=== PATIENT | female | born 1960 | race Caucasian/White ===

== ENCOUNTER 2018-10-25 19:55 | Emergency (ER) | payer MEDICAID ==
[~2018-10-25] VITALS: Ht 157.5 cm; Wt 100.0 kg
[~2018-10-25 19:55] MED LIST: AMLO10TA PO; ATOR40TA71 PO; CHOL10002 PO; GABA-532 PO; LACT1CAP26 PO; LOSA1TAB41 PO; NORT25CA5 PO; PANT40TA4 PO; SITA100T11 PO; SPIR50TA5 PO
[2018-10-25 22:28] VITALS: BP 191/98
[2018-10-25] MEDS ORDERED: azithromycin 250mg tablet PO ONE (22:40)
[2018-10-25] MEDS ORDERED: AZIT250T PO (22:43)
== END 2018-10-25 22:58 | disposition home or self-care (01) ==
LOC: ER 19:56
DX: J18.9 Pneumonia, unspecified organism (principal); E11.42 Type 2 diabetes mellitus with diabetic polyneuropathy; I11.0 Hypertensive heart disease with heart failure; I50.9 Heart failure, unspecified; I48.91 Unspecified atrial fibrillation; E78.00 Pure hypercholesterolemia, unspecified; K21.9 Gastro-esophageal reflux disease without esophagitis; J44.9 Chronic obstructive pulmonary disease, unspecified; Z90.49 Acquired absence of other specified parts of digestive tract; Z90.710 Acquired absence of both cervix and uterus; Z88.0 Allergy status to penicillin; Z88.5 Allergy status to narcotic agent; Z79.899 Other long term (current) drug therapy
CPT/HCPCS: 71046; 93005; 99284

== ENCOUNTER 2019-08-26 20:29 | Inpatient (IN) | payer MEDICAID ==
[~2019-08-26] VITALS: Ht 157.5 cm; Wt 95.4 kg
[2019-08-26 21:16] LABS: BASOPHILS # (AUTO) 0.1 X10'3 (0-0.2); BASOPHILS % (AUTO) 0.8 % (0-1); EOSINOPHILS # (AUTO) 0.3 X10'3 (0-0.9); EOSINOPHILS % (AUTO) 1.9 % (0-6); HEMATOCRIT 38.2 % (35.0-45.0); LYMPHOCYTES # (AUTO) 2.6 X10'3 (1.1-4.8); LYMPHOCYTES % (AUTO) 17.6 % (21-51); MEAN CORPUSCULAR HEMOGLOBIN 30.9 PG (27.0-31.0); MEAN CORPUSCULAR HGB CONC 34.1 g/dL (33.0-36.5); MEAN CORPUSCULAR VOLUME 90.7 FL (78-98); MEAN PLATELET VOLUME 9.2 FL (7.4-10.4); MONOCYTES # (AUTO) 1.1 X10'3 (0-0.9); MONOCYTES % (AUTO) 7.2 % (2-12); NEUTROPHILS # (AUTO) 10.6 X10'3 (1.8-7.7); NEUTROPHILS % (AUTO) 72.5 % (42-75); PLATELET COUNT 276 X10'3 (140-440); RED BLOOD COUNT 4.21 X10'6 (4.20-5.60); RED CELL DISTRIBUTION WIDTH 14.2 % (11.5-14.5); WHITE BLOOD COUNT 14.7 X10'3 (4.5-11.0)
[2019-08-26 21:27] LABS: ALANINE AMINOTRANSFERASE 13 U/L (12-78); ALBUMIN 2.6 G/DL (3.4-5.0); ALBUMIN/GLOBULIN RATIO 0.6 (1.1-1.5); ALKALINE PHOSPHATASE 148 IU/L (46-116); ANION GAP 9 (8-16); ASPARTATE AMINO TRANSFERASE 17 U/L (10-37); BILIRUBIN,TOTAL 0.2 MG/DL (0.1-1.0); BLOOD UREA NITROGEN 24 MG/DL (7-18); BUN/CREATININE RATIO 9.7 (6.6-38.0); CALCIUM 8.2 MG/DL (8.5-10.1); CHLORIDE 108 MMOL/L (99-107); CREATININE 2.47 MG/DL (0.40-0.90); GLUCOSE 170 MG/DL (70-104); SODIUM 142 MMOL/L (135-145); TOTAL CARBON DIOXIDE 25.4 MMOL/L (24-32); TOTAL PROTEIN 6.7 G/DL (6.4-8.2); eGFR 20 ML/MIN
--- NOTE | 2019-08-26 22:27 | NUR ---
bp on right 192/129 bp on the left 218/129 PA shaneka baez
[2019-08-26] MEDS ORDERED: metoprolol tartrate 1mg/ml inj IV ONE (22:30)
[2019-08-26] MEDS ORDERED: iohexol 350MG/ML 100ml bottle IV ONE (22:31)
--- NOTE | 2019-08-26 22:39 | NUR ---
pt to ct via wheel chair
[2019-08-26] MEDS ORDERED: hydrALAZINE 20mg/ml inj. IV ONE (23:50)
[2019-08-27] VITALS (19 sets, daily range): BP systolic 128–175; BP diastolic 65–102
[2019-08-27] MEDS ORDERED: nitroGLYCERIN-Tridil 50MG/D5W 250 ML IV PRN (00:12)
--- NOTE | 2019-08-27 01:00 | NUR ---
daughter in law jennifer can be reached at [phone]
--- NOTE | 2019-08-27 01:28 | NUR ---
nitor going at 10mcg / min pt reports pain 4/10 bp at 199/100 increased nitro drip to 15mcg/ min infusing to the right ac patent without incident at this time pt plan of care updated and pt is awaiting a bed for admission
[2019-08-27] MEDS ORDERED: amLODIPine 5mg tablet PO ONE (01:35)
[2019-08-27] MEDS ORDERED: hydrALAZINE 20mg/ml inj. IV ONE (01:35)
[2019-08-27] MEDS ORDERED: potassium CL 10mEq/100ml bag 100 ML IV PRN ×2 (01:45)
[2019-08-27] MEDS: K, MAG and/or Phos replacement - Verify level? MC SCH ×2 (01:45→08:00)
[2019-08-27] MEDS ORDERED: ondansetron/PF 4mg/2ml inj IV PRN (01:45)
[2019-08-27] MEDS ORDERED: magnesium hydroxide 30ml (MOM) UD suspension PO PRN (01:45)
[2019-08-27] MEDS ORDERED: potassium Cl 20 mEq SR tablet PO PRN ×2 (01:45)
[2019-08-27] MEDS ORDERED: acetaminophen 325mg tablet PO PRN (01:45)
[2019-08-27] MEDS ORDERED: dextrose 50%-water 50ml dispensing syringe IV PRN ×2 (01:55)
[2019-08-27] MEDS ORDERED: dextrose ORAL solution 15 GM/59 ML bottle PO PRN ×2 (01:55)
[2019-08-27] MEDS ORDERED: MESSAGE TO PHARMACY PO ONE (01:55)
[2019-08-27] MEDS ORDERED: glucagon, human recombinant 1mg kit SUBCUT PRN (01:55)
--- NOTE | 2019-08-27 02:05 | NUR ---
bp at 172/86 niro running at 15mcg/ min will continue to moniter and tirate as needed
--- NOTE | 2019-08-27 02:55 | NUR ---
received pt via silviorayla from ER, pt ambulated to bed without difficulties. Pt is in and out of Afib, mostly SR, Tridil drip in place to keep sbp near 180, see flow sheet for titrations. pt denies numbness and tingling speech clear thought process is clear.
[2019-08-27] MEDS: acetaminophen 325mg tablet PO PRN ×2 (03:24→18:57)
[2019-08-27 06:08] LABS: HEMOGLOBIN A1C 7.9 % (4.5-6.2)
--- NOTE | 2019-08-27 06:18 | NUR ---
report given to rec rn plan of care reviewed
--- NOTE | 2019-08-27 06:30 | NUR ---
Patient in room ICU 2039. I have received report from PATY ALLISON and had the opportunity to ask questions and assume patient care.
[2019-08-27] MEDS: pantoprazole 40mg Tablet.DR PO SCH (08:31)
[2019-08-27] MEDS: insulin Lispro (HumaLOG) vial - multi-dose SQ SCH (08:38)
[2019-08-27] MEDS ORDERED: carVEDilol 3.125mg tablet PO SCH (08:45)
[2019-08-27 08:51] LABS: ALANINE AMINOTRANSFERASE 13 U/L (12-78); ALBUMIN 2.5 G/DL (3.4-5.0); ALBUMIN/GLOBULIN RATIO 0.7 (1.1-1.5); ALKALINE PHOSPHATASE 145 IU/L (46-116); ANION GAP 13 (8-16); ASPARTATE AMINO TRANSFERASE 17 U/L (10-37); BILIRUBIN,TOTAL 0.2 MG/DL (0.1-1.0); BLOOD UREA NITROGEN 23 MG/DL (7-18); BUN/CREATININE RATIO 9.7 (6.6-38.0); CALCIUM 8.2 MG/DL (8.5-10.1); CHLORIDE 106 MMOL/L (99-107); CREATININE 2.38 MG/DL (0.40-0.90); GLUCOSE 210 MG/DL (70-104); POTASSIUM 3.8 MMOL/L (3.5-5.1); SODIUM 138 MMOL/L (135-145); TOTAL CARBON DIOXIDE 19.4 MMOL/L (24-32); TOTAL PROTEIN 6.3 G/DL (6.4-8.2); eGFR 21 ML/MIN
[2019-08-27] MEDS: losartan 50mg tablet PO SCH (09:17)
[2019-08-27] MEDS: amLODIPine 5mg tablet PO SCH (09:19)
[2019-08-27] MEDS: vitamin D (cholecalciferol) 1,000 unit tablet PO SCH (09:20)
[2019-08-27] MEDS: linagliptin 5mg tablet PO SCH (11:01)
--- NOTE | 2019-08-27 12:20 | NUR ---
DM Consult: A1C 7.9. Pt admit w/ hypertensive emergency and CKD. Pt seen by RD for written/verbal DM ed w/ RD contact information provided. Pt reports checks GLU at home but does have difficulty w/ med refills on occasion and cannot recall her DM meds. Per EMR pt takes daily Januvia. Pt reports does not know what carbs are or sources of carbs; RD provided thorough ed on types of and sources of carbohydrates. RD also reviewed protein sources, carb counting, portion sizing, and nutrition facts label guidelines and encouraged pt to attend CDE course. Pt reports no trouble chewing/swallowing or food preferences at this time. Addendum: 08/27/19 at [address] Amended: Links added.
[2019-08-27] MEDS ORDERED: simethicone 80mg chew tab PO PRN (14:05)
--- NOTE | 2019-08-27 14:08 | NUR ---
C/O CP, DIRECTLY OVER HEART. NO SX OF ANY DISTRESS, DESCRIBES SHARP, STARTTED FEW MINUTES AGO. ELIZABETH METCALF NOTIFIED, ORDER FOR SIMETHICONE PO.
[2019-08-27] MEDS: lactobacillus rhamnosus 10,000 MMU CELLS/CAPSULE PO SCH (17:34)
--- NOTE | 2019-08-27 18:20 | NUR ---
Patient in room ICU 2039. I have received report from Basil NEWMAN and had the opportunity to ask questions and assume patient care.
--- NOTE | 2019-08-27 18:36 | NUR ---
Problems reprioritized. Patient report given, questions answered & plan of care reviewed with jared guardado.
--- NOTE | 2019-08-27 19:16 | NUR ---
Problems reprioritized. Patient report given, questions answered & plan of care reviewed with Daniela NEWMAN. Patient to be transferred to U [id number].
--- NOTE | 2019-08-27 19:34 | NUR ---
pt arrived to PCU unit from ICU via wheelchair pt is A&O x4, pt denies any respiratory distress at this time, will continue to monitor pt
--- NOTE | 2019-08-27 19:50 | NUR ---
Patient transferred to room 3025B via wheelchair, all belongings with patient. Patient is alert and orientated x4, in sinus rhythm, vital signs stable, on room air with spo2 at 97%, lungs are clear in upper lobes, bilateral bases are course, skin intact, PIV is saline locked. All questions answered with INFORMATION SERVICES TECH.
[2019-08-27] MEDS: gabapentin 300mg capsule PO SCH (19:52)
[2019-08-27] MEDS: carvedilol 6.25mg tablet PO SCH (19:52)
[2019-08-27] MEDS: insulin glargine (Lantus) pen - multi-dose SQ SCH (21:15)
[2019-08-28 02:00] VITALS: BP 171/75
[2019-08-28] MEDS ORDERED: diphenhydrAMINE 50 mg/ml inj IV ONE (03:15)
--- NOTE | 2019-08-28 03:15 | NUR ---
pt BP slightly elevated, notified , obtained hydralazine order. pt tongue is mildly elevated, obtained Benadryl order. will administer both these medications and continue to monitor pt
[2019-08-28] MEDS: hydrALAZINE 20mg/ml inj. IV PRN (03:38)
[2019-08-28 05:29] LABS: BASOPHILS # (AUTO) 0.1 X10'3 (0-0.2); BASOPHILS % (AUTO) 0.6 % (0-1); EOSINOPHILS # (AUTO) 0.4 X10'3 (0-0.9); EOSINOPHILS % (AUTO) 2.7 % (0-6); HEMATOCRIT 36.5 % (35.0-45.0); HEMOGLOBIN 12.5 g/dl (12.0-16.0); LYMPHOCYTES # (AUTO) 2.8 X10'3 (1.1-4.8); MEAN CORPUSCULAR HEMOGLOBIN 30.9 PG (27.0-31.0); MEAN CORPUSCULAR HGB CONC 34.1 g/dL (33.0-36.5); MEAN CORPUSCULAR VOLUME 90.6 FL (78-98); MEAN PLATELET VOLUME 9.9 FL (7.4-10.4); MONOCYTES # (AUTO) 1.2 X10'3 (0-0.9); MONOCYTES % (AUTO) 8.4 % (2-12); NEUTROPHILS # (AUTO) 9.6 X10'3 (1.8-7.7); NEUTROPHILS % (AUTO) 68.3 % (42-75); PLATELET COUNT 256 X10'3 (140-440); RED BLOOD COUNT 4.03 X10'6 (4.20-5.60); RED CELL DISTRIBUTION WIDTH 14.2 % (11.5-14.5)
[2019-08-28 06:04] LABS: ALANINE AMINOTRANSFERASE 10 U/L (12-78); ALBUMIN 2.4 G/DL (3.4-5.0); ALBUMIN/GLOBULIN RATIO 0.7 (1.1-1.5); ALKALINE PHOSPHATASE 138 IU/L (46-116); ANION GAP 10 (8-16); ASPARTATE AMINO TRANSFERASE 14 U/L (10-37); BILIRUBIN,TOTAL 0.2 MG/DL (0.1-1.0); BLOOD UREA NITROGEN 28 MG/DL (7-18); BUN/CREATININE RATIO 10.3 (6.6-38.0); CALCIUM 8.5 MG/DL (8.5-10.1); CHLORIDE 106 MMOL/L (99-107); CREATININE 2.73 MG/DL (0.40-0.90); GLUCOSE 151 MG/DL (70-104); MAGNESIUM 1.9 MG/DL (1.5-2.4); POTASSIUM 3.8 MMOL/L (3.5-5.1); SODIUM 137 MMOL/L (135-145); TOTAL CARBON DIOXIDE 20.6 MMOL/L (24-32); eGFR 18 ML/MIN
--- NOTE | 2019-08-28 06:18 | NUR ---
Problems reprioritized. Patient report given, questions answered & plan of care reviewed with Carmela NEWMAN.
--- NOTE | 2019-08-28 06:20 | NUR ---
Patient in room PCU 3025. I have received report from Aleta NEWMAN and had the opportunity to ask questions and assume patient care. Patient asleep in bed and resting comfortably.
[2019-08-28 07:00] VITALS: BP 152/68
[2019-08-28] MEDS: K, MAG and/or Phos replacement - Verify level? MC SCH (08:00)
[2019-08-28] MEDS: vitamin D (cholecalciferol) 1,000 unit tablet PO SCH (08:31)
[2019-08-28] MEDS: amLODIPine 5mg tablet PO SCH (08:31)
[2019-08-28] MEDS: losartan 50mg tablet PO SCH (08:31)
[2019-08-28] MEDS: lactobacillus rhamnosus 10,000 MMU CELLS/CAPSULE PO SCH ×2 (08:31→19:07)
[2019-08-28] MEDS: linagliptin 5mg tablet PO SCH (08:32)
[2019-08-28] MEDS: gabapentin 300mg capsule PO SCH ×2 (08:32→19:08)
[2019-08-28] MEDS: carvedilol 6.25mg tablet PO SCH ×2 (08:32→19:08)
[2019-08-28] MEDS: pantoprazole 40mg Tablet.DR PO SCH (08:32)
[2019-08-28 11:00] VITALS: BP 126/60
[2019-08-28] MEDS ORDERED: NO HOME MEDS (12:36)
[2019-08-28] MEDS: insulin Lispro (HumaLOG) vial - multi-dose SQ SCH (13:42)
--- NOTE | 2019-08-28 13:54 | NUR ---
New order from Dr. Maddox 25 mg IV benadryl IV Q8H PRN
[2019-08-28 15:00] VITALS: BP 120/71
[2019-08-28] MEDS: diphenhydrAMINE 50 mg/ml inj IV PRN (15:15)
--- NOTE | 2019-08-28 17:15 | NUR ---
Primary nurse notified of BS 60, gave glucose shot 15g, rechecked BS 15 mins later which resulted of 103.
[2019-08-28 18:00] VITALS: BP 124/76
--- NOTE | 2019-08-28 18:21 | NUR ---
Problems reprioritized. Patient report given, questions answered & plan of care reviewed with Aleta NEWMAN. Patient stable at transfer of care.
[2019-08-28] MEDS: acetaminophen 325mg tablet PO PRN (19:22)
[2019-08-28] MEDS: insulin glargine (Lantus) pen - multi-dose SQ SCH (21:01)
[2019-08-28 22:00] VITALS: BP 135/64
[2019-08-29 02:00] VITALS: BP 147/72
[2019-08-29 06:00] LABS: ALANINE AMINOTRANSFERASE 12 U/L (12-78); ALBUMIN 2.6 G/DL (3.4-5.0); ALBUMIN/GLOBULIN RATIO 0.7 (1.1-1.5); ALKALINE PHOSPHATASE 131 IU/L (46-116); ANION GAP 12 (8-16); ASPARTATE AMINO TRANSFERASE 17 U/L (10-37); BILIRUBIN,TOTAL 0.2 MG/DL (0.1-1.0); BLOOD UREA NITROGEN 35 MG/DL (7-18); BUN/CREATININE RATIO 10.9 (6.6-38.0); CALCIUM 8.4 MG/DL (8.5-10.1); CHLORIDE 103 MMOL/L (99-107); CREATININE 3.22 MG/DL (0.40-0.90); GLUCOSE 88 MG/DL (70-104); MAGNESIUM 1.9 MG/DL (1.5-2.4); POTASSIUM 4.6 MMOL/L (3.5-5.1); SODIUM 136 MMOL/L (135-145); TOTAL CARBON DIOXIDE 20.9 MMOL/L (24-32); TOTAL PROTEIN 6.4 G/DL (6.4-8.2); eGFR 15 ML/MIN
--- NOTE | 2019-08-29 06:19 | NUR ---
Problems reprioritized. Patient report given, questions answered & plan of care reviewed with Carmela NEWMAN.
--- NOTE | 2019-08-29 06:27 | NUR ---
Patient in room PCU 3025. I have received report from Yris NEWMAN and had the opportunity to ask questions and assume patient care. Patient awake in bed. In no acute distress.
[2019-08-29 06:43] LABS: BASOPHILS # (AUTO) 0.1 X10'3 (0-0.2); BASOPHILS % (AUTO) 0.7 % (0-1); EOSINOPHILS # (AUTO) 0.3 X10'3 (0-0.9); EOSINOPHILS % (AUTO) 2.3 % (0-6); HEMATOCRIT 37.1 % (35.0-45.0); HEMOGLOBIN 12.4 g/dl (12.0-16.0); LYMPHOCYTES # (AUTO) 2.9 X10'3 (1.1-4.8); LYMPHOCYTES % (AUTO) 19.6 % (21-51); MEAN CORPUSCULAR HEMOGLOBIN 30.3 PG (27.0-31.0); MEAN CORPUSCULAR HGB CONC 33.4 g/dL (33.0-36.5); MEAN CORPUSCULAR VOLUME 90.7 FL (78-98); MONOCYTES # (AUTO) 1.2 X10'3 (0-0.9); MONOCYTES % (AUTO) 8.5 % (2-12); NEUTROPHILS % (AUTO) 68.9 % (42-75); PLATELET COUNT 261 X10'3 (140-440); RED BLOOD COUNT 4.09 X10'6 (4.20-5.60); RED CELL DISTRIBUTION WIDTH 14.7 % (11.5-14.5); WHITE BLOOD COUNT 14.6 X10'3 (4.5-11.0)
[2019-08-29 07:00] VITALS: BP 163/103
[2019-08-29] MEDS: losartan 50mg tablet PO SCH (07:59)
[2019-08-29] MEDS: gabapentin 300mg capsule PO SCH ×2 (07:59→20:55)
[2019-08-29] MEDS: vitamin D (cholecalciferol) 1,000 unit tablet PO SCH (07:59)
[2019-08-29] MEDS: linagliptin 5mg tablet PO SCH (07:59)
[2019-08-29] MEDS: pantoprazole 40mg Tablet.DR PO SCH (07:59)
[2019-08-29] MEDS: carvedilol 6.25mg tablet PO SCH ×2 (07:59→20:57)
[2019-08-29] MEDS: amLODIPine 5mg tablet PO SCH (07:59)
[2019-08-29] MEDS: lactobacillus rhamnosus 10,000 MMU CELLS/CAPSULE PO SCH ×2 (07:59→18:57)
[2019-08-29] MEDS: K, MAG and/or Phos replacement - Verify level? MC SCH (08:00)
[2019-08-29] MEDS: insulin Lispro (HumaLOG) vial - multi-dose SQ SCH ×3 (09:41→19:02)
[2019-08-29 11:00] VITALS: BP 163/79
[2019-08-29] MEDS: diphenhydrAMINE 50 mg/ml inj IV PRN (12:23)
[2019-08-29] MEDS: acetaminophen 325mg tablet PO PRN ×2 (12:23→21:35)
[2019-08-29 15:00] VITALS: BP 141/72
--- NOTE | 2019-08-29 18:18 | NUR ---
Problems reprioritized. Patient report given, questions answered & plan of care reviewed with Aleta NEWMAN. Patient stable at transfer of care.
--- NOTE | 2019-08-29 18:28 | NUR ---
Patient in room PCU 3025. I have received report from Carmela NEWMAN and had the opportunity to ask questions and assume patient care.
[2019-08-29 19:12] VITALS: BP 141/71
[2019-08-29] MEDS: insulin glargine (Lantus) pen - multi-dose SQ SCH (21:28)
[2019-08-29 23:00] VITALS: BP 160/74
[2019-08-30 02:00] VITALS: BP 136/80
[2019-08-30 06:08] LABS: BASOPHILS # (AUTO) 0.1 X10'3 (0-0.2); BASOPHILS % (AUTO) 0.7 % (0-1); EOSINOPHILS # (AUTO) 0.2 X10'3 (0-0.9); EOSINOPHILS % (AUTO) 1.7 % (0-6); HEMOGLOBIN 12.4 g/dl (12.0-16.0); LYMPHOCYTES % (AUTO) 9.2 % (21-51); MEAN CORPUSCULAR HEMOGLOBIN 30.9 PG (27.0-31.0); MEAN CORPUSCULAR HGB CONC 33.6 g/dL (33.0-36.5); MEAN PLATELET VOLUME 9.9 FL (7.4-10.4); MONOCYTES # (AUTO) 0.9 X10'3 (0-0.9); MONOCYTES % (AUTO) 8.1 % (2-12); NEUTROPHILS # (AUTO) 9.1 X10'3 (1.8-7.7); NEUTROPHILS % (AUTO) 80.3 % (42-75); PLATELET COUNT 244 X10'3 (140-440); RED BLOOD COUNT 4.02 X10'6 (4.20-5.60); RED CELL DISTRIBUTION WIDTH 14.5 % (11.5-14.5); WHITE BLOOD COUNT 11.4 X10'3 (4.5-11.0)
[2019-08-30 06:24] LABS: ALANINE AMINOTRANSFERASE 11 U/L (12-78); ALBUMIN 2.6 G/DL (3.4-5.0); ALBUMIN/GLOBULIN RATIO 0.7 (1.1-1.5); ALKALINE PHOSPHATASE 140 IU/L (46-116); ANION GAP 8 (8-16); ASPARTATE AMINO TRANSFERASE 20 U/L (10-37); BILIRUBIN,TOTAL 0.2 MG/DL (0.1-1.0); BLOOD UREA NITROGEN 41 MG/DL (7-18); BUN/CREATININE RATIO 12.7 (6.6-38.0); CALCIUM 8.7 MG/DL (8.5-10.1); CHLORIDE 105 MMOL/L (99-107); CREATININE 3.22 MG/DL (0.40-0.90); GLUCOSE 112 MG/DL (70-104); MAGNESIUM 2.2 MG/DL (1.5-2.4); POTASSIUM 5.2 MMOL/L (3.5-5.1); SODIUM 138 MMOL/L (135-145); TOTAL CARBON DIOXIDE 24.9 MMOL/L (24-32); TOTAL PROTEIN 6.6 G/DL (6.4-8.2); eGFR 15 ML/MIN
--- NOTE | 2019-08-30 06:42 | NUR ---
Problems reprioritized. Patient report given, questions answered & plan of care reviewed with Ericka NEWMAN.
[2019-08-30 07:00] VITALS: BP 128/73
[2019-08-30] MEDS: K, MAG and/or Phos replacement - Verify level? MC SCH (08:00)
[2019-08-30] MEDS: carvedilol 6.25mg tablet PO SCH ×2 (08:03→19:27)
[2019-08-30] MEDS: vitamin D (cholecalciferol) 1,000 unit tablet PO SCH (08:03)
[2019-08-30] MEDS: pantoprazole 40mg Tablet.DR PO SCH (08:04)
[2019-08-30] MEDS: lactobacillus rhamnosus 10,000 MMU CELLS/CAPSULE PO SCH ×2 (08:04→17:26)
[2019-08-30] MEDS: gabapentin 300mg capsule PO SCH ×2 (08:04→19:27)
[2019-08-30] MEDS: linagliptin 5mg tablet PO SCH (08:04)
[2019-08-30] MEDS: amLODIPine 5mg tablet PO SCH (08:04)
[2019-08-30] MEDS: losartan 50mg tablet PO SCH (08:04)
[2019-08-30] MEDS: insulin Lispro (HumaLOG) vial - multi-dose SQ SCH ×3 (08:45→19:32)
[2019-08-30] MEDS: acetaminophen 325mg tablet PO PRN (09:49)
[2019-08-30 11:00] VITALS: BP 136/62
[2019-08-30 13:41] LABS: CLARITY,URINE CLEAR (Clear); COLOR,URINE YELLOW (Yellow); GLUCOSE, URINE NEGATIVE (Neg); KETONES,URINE NEGATIVE (Neg); LEUKOCYTE ESTERASE ,URINE NEGATIVE (Neg); NITRITES, URINE NEGATIVE (Neg); OCCULT BLOOD,URINE TRACE-LYSED (Neg); PH,URINE 5.5 (4.8-8.0); PROTEIN,URINE 100 mg/dl (Neg); UROBILINOGEN,URINE 0.2 E.U/dL (0.2-1.0)
[2019-08-30 13:43] LABS: UA COLLECTION TYPE CLN CATCH MIDSTREAM
[2019-08-30 13:53] LABS: TOTAL PROTEIN,URINE RANDOM 79.8 MG/DL
[2019-08-30 13:55] LABS: SQUAMOUS EPITHELIAL CELL,UR FEW /LPF (FEW)
[2019-08-30 13:56] LABS: HYALINE CASTS 0-3 /LPF (NEGATIVE)
[2019-08-30 13:57] LABS: WBC,URINE 0-4 /HPF (0-4)
[2019-08-30 13:59] LABS: RBC,URINE 0-2 /HPF (0-2)
[2019-08-30 14:00] LABS: BACTERIA,URINE FEW /HPF (Neg)
[2019-08-30 14:01] LABS: AMORPHOUS URATES 1+
[2019-08-30 14:37] LABS: UA EOSINOPHILS NO EOS /HPF
[2019-08-30 15:00] VITALS: BP 140/69
--- NOTE | 2019-08-30 17:11 | NUR ---
New telephone order to rosalinda gould
[2019-08-30] MEDS: normal saline 1000ml 1,000 ML IV SCH (17:54)
[2019-08-30 19:00] VITALS: BP 163/73
[2019-08-30] MEDS: hydrALAZINE 20mg/ml inj. IV PRN (19:33)
[2019-08-30] MEDS: insulin glargine (Lantus) pen - multi-dose SQ SCH (21:00)
[2019-08-30 23:00] VITALS: BP 162/71
[2019-08-31] VITALS (8 sets, daily range): BP systolic 129–167; BP diastolic 60–80
[2019-08-31] MEDS: acetaminophen 325mg tablet PO PRN ×3 (02:03→16:58)
[2019-08-31] MEDS: normal saline 1000ml 1,000 ML IV SCH ×2 (03:45→09:50)
[2019-08-31 06:10] LABS: BASOPHILS # (AUTO) 0.1 X10'3 (0-0.2); BASOPHILS % (AUTO) 0.7 % (0-1); EOSINOPHILS # (AUTO) 0.1 X10'3 (0-0.9); EOSINOPHILS % (AUTO) 1.4 % (0-6); HEMATOCRIT 32.4 % (35.0-45.0); HEMOGLOBIN 11.2 g/dl (12.0-16.0); LYMPHOCYTES # (AUTO) 1.3 X10'3 (1.1-4.8); LYMPHOCYTES % (AUTO) 13.9 % (21-51); MEAN CORPUSCULAR HEMOGLOBIN 31.6 PG (27.0-31.0); MEAN CORPUSCULAR HGB CONC 34.6 g/dL (33.0-36.5); MEAN CORPUSCULAR VOLUME 91.5 FL (78-98); MEAN PLATELET VOLUME 10.2 FL (7.4-10.4); MONOCYTES # (AUTO) 1.2 X10'3 (0-0.9); MONOCYTES % (AUTO) 12.2 % (2-12); NEUTROPHILS # (AUTO) 6.8 X10'3 (1.8-7.7); NEUTROPHILS % (AUTO) 71.8 % (42-75); PLATELET COUNT 211 X10'3 (140-440); RED BLOOD COUNT 3.54 X10'6 (4.20-5.60); RED CELL DISTRIBUTION WIDTH 14.5 % (11.5-14.5); WHITE BLOOD COUNT 9.5 X10'3 (4.5-11.0)
[2019-08-31 06:13] LABS: ALANINE AMINOTRANSFERASE 11 U/L (12-78); ALBUMIN 2.4 G/DL (3.4-5.0); ALBUMIN/GLOBULIN RATIO 0.6 (1.1-1.5); ALKALINE PHOSPHATASE 129 IU/L (46-116); ANION GAP 10 (8-16); ASPARTATE AMINO TRANSFERASE 20 U/L (10-37); BILIRUBIN,TOTAL 0.2 MG/DL (0.1-1.0); BLOOD UREA NITROGEN 43 MG/DL (7-18); BUN/CREATININE RATIO 13.4 (6.6-38.0); CALCIUM 8.4 MG/DL (8.5-10.1); CHLORIDE 108 MMOL/L (99-107); CREATININE 3.21 MG/DL (0.40-0.90); GLUCOSE 106 MG/DL (70-104); MAGNESIUM 2.2 MG/DL (1.5-2.4); PHOSPHORUS 5.5 MG/DL (2.3-4.5); POTASSIUM 4.8 MMOL/L (3.5-5.1); SODIUM 139 MMOL/L (135-145); TOTAL CARBON DIOXIDE 20.8 MMOL/L (24-32); TOTAL PROTEIN 6.1 G/DL (6.4-8.2); eGFR 15 ML/MIN
[2019-08-31] MEDS: gabapentin 300mg capsule PO SCH (07:35)
[2019-08-31] MEDS: amLODIPine 5mg tablet PO SCH (07:36)
[2019-08-31] MEDS: lactobacillus rhamnosus 10,000 MMU CELLS/CAPSULE PO SCH ×2 (07:36→16:56)
[2019-08-31] MEDS: linagliptin 5mg tablet PO SCH (07:36)
[2019-08-31] MEDS: pantoprazole 40mg Tablet.DR PO SCH (07:37)
[2019-08-31] MEDS: carvedilol 6.25mg tablet PO SCH (07:38)
[2019-08-31] MEDS: losartan 50mg tablet PO SCH (07:38)
[2019-08-31] MEDS: vitamin D (cholecalciferol) 1,000 unit tablet PO SCH (07:39)
[2019-08-31] MEDS: K, MAG and/or Phos replacement - Verify level? MC SCH (07:41)
--- NOTE | 2019-08-31 09:55 | NUR ---
Initial: Pt admit with hypertensive emergency. BP now controlled per PA notes. Pt currently on CHO controlled diet documented with 75-100% PO intake throughout LOS meeting nutrient needs. Pt with elevated Phos of 5.5 today, pt would benefit from phos binder per MD approval. LBM 08/28. No edema or wounds. No nutrition diagnosis a this time. Will continue to follow. Recommendations: 1) Continue CHO controlled diet; monitor electrolytes and need for the addition of renal diet 2) Consider Phos binder per MD approval given elevated Phos 3) Bowel care PRN 4) Wt per rx Addendum: 08/31/19 at [address] Amended: Links added.
[2019-08-31] MEDS: insulin Lispro (HumaLOG) vial - multi-dose SQ SCH ×2 (13:09→19:17)
--- NOTE | 2019-08-31 18:12 | NUR ---
Problems reprioritized. Patient report given, questions answered & plan of care reviewed with PATY Olson. Patient stable at transfer of care.
[2019-08-31] MEDS: carVEDilol 12.5mg tablet PO SCH (19:13)
[2019-08-31] MEDS: insulin glargine (Lantus) pen - multi-dose SQ SCH (21:00)
[2019-09-01] VITALS (7 sets, daily range): BP systolic 116–176; BP diastolic 61–82
[2019-09-01 06:23] LABS: BASOPHILS % (AUTO) 0.6 % (0-1); EOSINOPHILS # (AUTO) 0.2 X10'3 (0-0.9); EOSINOPHILS % (AUTO) 2.5 % (0-6); HEMOGLOBIN 11.3 g/dl (12.0-16.0); LYMPHOCYTES # (AUTO) 1.5 X10'3 (1.1-4.8); MEAN CORPUSCULAR HEMOGLOBIN 31.7 PG (27.0-31.0); MEAN CORPUSCULAR HGB CONC 34.4 g/dL (33.0-36.5); MEAN CORPUSCULAR VOLUME 92.1 FL (78-98); MEAN PLATELET VOLUME 10.3 FL (7.4-10.4); MONOCYTES # (AUTO) 1.1 X10'3 (0-0.9); MONOCYTES % (AUTO) 12.7 % (2-12); NEUTROPHILS # (AUTO) 5.6 X10'3 (1.8-7.7); NEUTROPHILS % (AUTO) 66.2 % (42-75); PLATELET COUNT 208 X10'3 (140-440); RED BLOOD COUNT 3.58 X10'6 (4.20-5.60); RED CELL DISTRIBUTION WIDTH 14.8 % (11.5-14.5); WHITE BLOOD COUNT 8.5 X10'3 (4.5-11.0)
--- NOTE | 2019-09-01 06:30 | NUR ---
Patient in room PCU 3025. I have received report from Whitney and had the opportunity to ask questions and assume patient care.
[2019-09-01 06:51] LABS: ALANINE AMINOTRANSFERASE 14 U/L (12-78); ALBUMIN 2.3 G/DL (3.4-5.0); ALBUMIN/GLOBULIN RATIO 0.6 (1.1-1.5); ALKALINE PHOSPHATASE 137 IU/L (46-116); ANION GAP 13 (8-16); ASPARTATE AMINO TRANSFERASE 22 U/L (10-37); BILIRUBIN,TOTAL 0.2 MG/DL (0.1-1.0); BLOOD UREA NITROGEN 47 MG/DL (7-18); BUN/CREATININE RATIO 14.4 (6.6-38.0); CALCIUM 8.4 MG/DL (8.5-10.1); CHLORIDE 109 MMOL/L (99-107); CREATININE 3.27 MG/DL (0.40-0.90); GLUCOSE 125 MG/DL (70-104); MAGNESIUM 1.9 MG/DL (1.5-2.4); PHOSPHORUS 6.1 MG/DL (2.3-4.5); SODIUM 143 MMOL/L (135-145); TOTAL CARBON DIOXIDE 21.1 MMOL/L (24-32); TOTAL PROTEIN 6.2 G/DL (6.4-8.2); eGFR 14 ML/MIN
[2019-09-01] MEDS: K, MAG and/or Phos replacement - Verify level? MC SCH (07:43)
[2019-09-01] MEDS: lactobacillus rhamnosus 10,000 MMU CELLS/CAPSULE PO SCH ×2 (07:46→17:17)
[2019-09-01] MEDS: pantoprazole 40mg Tablet.DR PO SCH (07:46)
[2019-09-01] MEDS: gabapentin 300mg capsule PO SCH (07:47)
[2019-09-01] MEDS: linagliptin 5mg tablet PO SCH (07:48)
[2019-09-01] MEDS: vitamin D (cholecalciferol) 1,000 unit tablet PO SCH (07:48)
[2019-09-01] MEDS: carVEDilol 12.5mg tablet PO SCH ×2 (07:48→19:33)
[2019-09-01] MEDS: losartan 25mg tablet PO SCH (07:48)
[2019-09-01] MEDS: amLODIPine 5mg tablet PO SCH (11:51)
[2019-09-01] MEDS: acetaminophen 325mg tablet PO PRN (11:55)
[2019-09-01] MEDS: insulin Lispro (HumaLOG) vial - multi-dose SQ SCH ×2 (12:55→18:54)
--- NOTE | 2019-09-01 18:32 | NUR ---
Problems reprioritized. Patient report given, questions answered & plan of care reviewed with Namita.
--- NOTE | 2019-09-01 18:42 | NUR ---
Patient in room U 3025. I have received report from PATY MENDEZ and had the opportunity to ask questions and assume patient care. Addendum: 09/01/19 at 1842 by Namita Davis RN Amended: Links added.
[2019-09-01] MEDS: insulin glargine (Lantus) pen - multi-dose SQ SCH (21:18)
[2019-09-02 02:00] VITALS: BP 188/83
[2019-09-02] MEDS: hydrALAZINE 20mg/ml inj. IV PRN (02:27)
[2019-09-02 02:50] VITALS: BP 140/65
--- NOTE | 2019-09-02 05:32 | NUR ---
0515 pt c/o dizziness, BP was 14/70, BS was 107mg/dl. pt still has some dizziness but slowing down
[2019-09-02 05:34] LABS: BASOPHILS # (AUTO) 0.1 X10'3 (0-0.2); BASOPHILS % (AUTO) 0.8 % (0-1); EOSINOPHILS # (AUTO) 0.2 X10'3 (0-0.9); EOSINOPHILS % (AUTO) 2.3 % (0-6); HEMATOCRIT 33.5 % (35.0-45.0); HEMOGLOBIN 11.6 g/dl (12.0-16.0); LYMPHOCYTES # (AUTO) 1.6 X10'3 (1.1-4.8); LYMPHOCYTES % (AUTO) 16.9 % (21-51); MEAN CORPUSCULAR HEMOGLOBIN 31.6 PG (27.0-31.0); MEAN CORPUSCULAR HGB CONC 34.5 g/dL (33.0-36.5); MEAN CORPUSCULAR VOLUME 91.6 FL (78-98); MEAN PLATELET VOLUME 9.6 FL (7.4-10.4); MONOCYTES % (AUTO) 10.4 % (2-12); NEUTROPHILS # (AUTO) 6.7 X10'3 (1.8-7.7); NEUTROPHILS % (AUTO) 69.6 % (42-75); PLATELET COUNT 206 X10'3 (140-440); RED BLOOD COUNT 3.65 X10'6 (4.20-5.60); RED CELL DISTRIBUTION WIDTH 14.7 % (11.5-14.5); WHITE BLOOD COUNT 9.6 X10'3 (4.5-11.0)
[2019-09-02 06:00] VITALS: BP 148/76
[2019-09-02 06:16] LABS: ALANINE AMINOTRANSFERASE 13 U/L (12-78); ALBUMIN 2.6 G/DL (3.4-5.0); ALBUMIN/GLOBULIN RATIO 0.7 (1.1-1.5); ALKALINE PHOSPHATASE 140 IU/L (46-116); ANION GAP 11 (8-16); ASPARTATE AMINO TRANSFERASE 22 U/L (10-37); BILIRUBIN,TOTAL 0.2 MG/DL (0.1-1.0); BLOOD UREA NITROGEN 49 MG/DL (7-18); BUN/CREATININE RATIO 15.4 (6.6-38.0); CALCIUM 8.6 MG/DL (8.5-10.1); CHLORIDE 107 MMOL/L (99-107); CREATININE 3.18 MG/DL (0.40-0.90); GLUCOSE 113 MG/DL (70-104); MAGNESIUM 1.8 MG/DL (1.5-2.4); PHOSPHORUS 5.2 MG/DL (2.3-4.5); POTASSIUM 4.8 MMOL/L (3.5-5.1); SODIUM 139 MMOL/L (135-145); TOTAL CARBON DIOXIDE 20.8 MMOL/L (24-32); TOTAL PROTEIN 6.6 G/DL (6.4-8.2); eGFR 15 ML/MIN
--- NOTE | 2019-09-02 06:22 | NUR ---
Problems reprioritized. Patient report given, questions answered & plan of care reviewed with PATY Baldwin. Addendum: 09/02/19 at 0622 by Namita Davis RN Amended: Links added.
--- NOTE | 2019-09-02 06:22 | NUR ---
Patient in room PCU 3025. I have received report from Maria M Zhong RN and had the opportunity to ask questions and assume patient care.
[2019-09-02 08:00] VITALS: BP_SYST 134; BP_SYST 136; BP_SYST 138; BP_DIAS 72; BP_DIAS 75; BP_DIAS 76
[2019-09-02] MEDS: K, MAG and/or Phos replacement - Verify level? MC SCH (08:00)
[2019-09-02] MEDS: losartan 25mg tablet PO SCH (08:09)
[2019-09-02] MEDS: lactobacillus rhamnosus 10,000 MMU CELLS/CAPSULE PO SCH (08:09)
[2019-09-02] MEDS: vitamin D (cholecalciferol) 1,000 unit tablet PO SCH (08:09)
[2019-09-02] MEDS: amLODIPine 5mg tablet PO SCH (08:09)
[2019-09-02] MEDS: gabapentin 300mg capsule PO SCH (08:09)
[2019-09-02] MEDS: linagliptin 5mg tablet PO SCH (08:09)
[2019-09-02] MEDS: pantoprazole 40mg Tablet.DR PO SCH (08:09)
[2019-09-02] MEDS: carVEDilol 12.5mg tablet PO SCH (08:09)
[2019-09-02] MEDS: insulin Lispro (HumaLOG) vial - multi-dose SQ SCH (09:17)
[2019-09-02 11:00] VITALS: BP 138/76
[2019-09-02] MEDS ORDERED: loratadine/pseudoephedrine TAB.SR.12Hour PO ONE (11:00)
[2019-09-02] MEDS ORDERED: CHOL100046 PO (11:18)
[2019-09-02] MEDS ORDERED: LINA5TAB4 PO (11:18)
[2019-09-02] MEDS ORDERED: NOR5T PO (11:18)
[2019-09-02] MEDS ORDERED: PANT40TA4 PO (11:18)
[2019-09-02] MEDS ORDERED: CARV-50 PO (11:18)
[2019-09-02] MEDS ORDERED: LOSA25TA41 PO (11:18)
--- NOTE | 2019-09-02 12:45 | NUR ---
Educated patient and patient's [id number] at bedside, regarding discharge instructions and patients new medication. Patient states understanding regarding her new medications, times to take them and signs and symptoms to watch for to come back to the ER. 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 Patient states she has a doctor's appointment already made for follow up at [facility]. All belongings sent with patient and prescriptions called into [facility].
== END 2019-09-02 12:30 | disposition home or self-care (01) | DRG 190 ==
LOC: ER 20:31 → ED HOLD 08-27 01:43 → ICU 2S 08-27 02:40 → PCU 3S 08-27 19:34
PROVIDERS: ADMIT Internal Medicine Critical Care Medicine; ATTEND Internal Medicine Critical Care Medicine
PROC: B32T1ZZ Computerized Tomography (CT Scan) of Left Pulmonary Artery using Low Osmolar Contrast (ICD-10-PCS; principal; 2019-08-27)
PROC: B3201ZZ Computerized Tomography (CT Scan) of Thoracic Aorta using Low Osmolar Contrast (ICD-10-PCS; 2019-08-27)
PROC: B32S1ZZ Computerized Tomography (CT Scan) of Right Pulmonary Artery using Low Osmolar Contrast (ICD-10-PCS; 2019-08-27)
PROC: B4201ZZ Computerized Tomography (CT Scan) of Abdominal Aorta using Low Osmolar Contrast (ICD-10-PCS; 2019-08-27)
PROC: B4241ZZ Computerized Tomography (CT Scan) of Superior Mesenteric Artery using Low Osmolar Contrast (ICD-10-PCS; 2019-08-27)
PROC: B4211ZZ Computerized Tomography (CT Scan) of Celiac Artery using Low Osmolar Contrast (ICD-10-PCS; 2019-08-27)
DX: I21.4 Non-ST elevation (NSTEMI) myocardial infarction (principal); E11.22 Type 2 diabetes mellitus with diabetic chronic kidney disease; E11.42 Type 2 diabetes mellitus with diabetic polyneuropathy; I50.9 Heart failure, unspecified; I13.0 Hypertensive heart and chronic kidney disease with heart failure and stage 1 through stage 4 chronic kidney disease, or unspecified chronic kidney disease; E11.65 Type 2 diabetes mellitus with hyperglycemia; E78.00 Pure hypercholesterolemia, unspecified; I16.1 Hypertensive emergency; F41.9 Anxiety disorder, unspecified; E87.5 Hyperkalemia; N18.4 Chronic kidney disease, stage 4 (severe); K21.9 Gastro-esophageal reflux disease without esophagitis; R09.81 Nasal congestion; I48.91 Unspecified atrial fibrillation; J44.9 Chronic obstructive pulmonary disease, unspecified; Z80.3 Family history of malignant neoplasm of breast; Z87.891 Personal history of nicotine dependence; Z90.49 Acquired absence of other specified parts of digestive tract; Z90.710 Acquired absence of both cervix and uterus; Z88.0 Allergy status to penicillin; Z88.5 Allergy status to narcotic agent; Z79.899 Other long term (current) drug therapy
CPT/HCPCS: 36415; 71045; 71275; 74174; 76937; 80053; 81001; 82570; 82948; 83036; 83735; 83880; 84100; 84156; 84300; 84484; 85025; 87081; 87207; 93005; 93975; 96365; 96375; 97161; 97530; 99285; G0378; J0360; J1200; J1815; J3490; J7030; Q9967

== ENCOUNTER 2020-10-16 00:16 | Emergency (ER) | payer MEDICAID ==
[~2020-10-16] VITALS: Ht 157.5 cm; Wt 92.0 kg
[~2020-10-16 00:16] MED LIST changes: -AMLO10TA PO; -ATOR40TA71 PO; +CARV-50 PO; -CHOL10002 PO; +CHOL100046 PO; -GABA-532 PO; -LACT1CAP26 PO; +LINA5TAB4 PO; -LOSA1TAB41 PO; +LOSA25TA41 PO; +NOR5T PO; -NORT25CA5 PO; -PANT40TA4 PO; +PANT40TA54 PO; -SITA100T11 PO; -SPIR50TA5 PO
[2020-10-16 02:50] LABS: BASOPHILS # (AUTO) 0.1 X10'3 (0-0.2); BASOPHILS % (AUTO) 0.5 % (0-1); EOSINOPHILS # (AUTO) 0.5 X10'3 (0-0.9); EOSINOPHILS % (AUTO) 3.2 % (0-6); HEMATOCRIT 26.1 % (35.0-45.0); HEMOGLOBIN 8.6 g/dl (12.0-16.0); LYMPHOCYTES # (AUTO) 1.7 X10'3 (1.1-4.8); LYMPHOCYTES % (AUTO) 11.5 % (21-51); MEAN CORPUSCULAR HEMOGLOBIN 28.8 PG (27.0-31.0); MEAN CORPUSCULAR VOLUME 87.2 FL (78-98); MEAN PLATELET VOLUME 7.9 FL (7.4-10.4); MONOCYTES # (AUTO) 1.1 X10'3 (0-0.9); MONOCYTES % (AUTO) 7.4 % (2-12); NEUTROPHILS # (AUTO) 11.2 X10'3 (1.8-7.7); NEUTROPHILS % (AUTO) 77.4 % (42-75); PLATELET COUNT 239 X10'3 (140-440); RED BLOOD COUNT 2.99 X10'6 (4.20-5.60); RED CELL DISTRIBUTION WIDTH 17.8 % (11.5-14.5); WHITE BLOOD COUNT 14.4 X10'3 (4.5-11.0)
[2020-10-16 02:55] LABS: ALANINE AMINOTRANSFERASE 16 U/L (12-78); ALBUMIN 1.8 G/DL (3.4-5.0); ALBUMIN/GLOBULIN RATIO 0.4 (1.1-1.5); ALKALINE PHOSPHATASE 158 IU/L (46-116); ANION GAP 12 (8-16); ASPARTATE AMINO TRANSFERASE 20 U/L (10-37); BILIRUBIN,TOTAL 0.2 MG/DL (0.1-1.0); BLOOD UREA NITROGEN 27 MG/DL (7-18); BUN/CREATININE RATIO 6.8 (6.6-38.0); CALCIUM 7.5 MG/DL (8.5-10.1); CHLORIDE 111 MMOL/L (99-107); CREATININE 3.97 MG/DL (0.40-0.90); GLUCOSE 87 MG/DL (70-104); POTASSIUM 5.4 MMOL/L (3.5-5.1); SODIUM 142 MMOL/L (135-145); TOTAL CARBON DIOXIDE 18.9 MMOL/L (24-32); eGFR 12 ML/MIN
[2020-10-16 03:55] VITALS: BP 145/82
== END 2020-10-16 03:56 | disposition home or self-care (01) ==
LOC: ER 00:17
DX: R19.7 Diarrhea, unspecified (principal); R60.0 Localized edema; I13.0 Hypertensive heart and chronic kidney disease with heart failure and stage 1 through stage 4 chronic kidney disease, or unspecified chronic kidney disease; E11.22 Type 2 diabetes mellitus with diabetic chronic kidney disease; N18.9 Chronic kidney disease, unspecified; I50.9 Heart failure, unspecified; E11.42 Type 2 diabetes mellitus with diabetic polyneuropathy; E78.00 Pure hypercholesterolemia, unspecified; J44.9 Chronic obstructive pulmonary disease, unspecified; K21.9 Gastro-esophageal reflux disease without esophagitis; F41.9 Anxiety disorder, unspecified; Z90.49 Acquired absence of other specified parts of digestive tract; Z90.710 Acquired absence of both cervix and uterus; Z88.0 Allergy status to penicillin; Z88.5 Allergy status to narcotic agent; Z79.899 Other long term (current) drug therapy
CPT/HCPCS: 36415; 80053; 85025; 99284

== ENCOUNTER 2020-11-21 21:41 | Inpatient (IN) | payer MEDICAID ==
[~2020-11-21] VITALS: Ht 157.5 cm; Wt 96.8 kg
[2020-11-21 22:46] LABS: BASOPHILS # (AUTO) 0.1 X10'3 (0-0.2); BASOPHILS % (AUTO) 0.4 % (0-1); EOSINOPHILS # (AUTO) 0.2 X10'3 (0-0.9); EOSINOPHILS % (AUTO) 1.2 % (0-6); HEMATOCRIT 25.6 % (35.0-45.0); HEMOGLOBIN 8.1 g/dl (12.0-16.0); LYMPHOCYTES # (AUTO) 1.1 X10'3 (1.1-4.8); LYMPHOCYTES % (AUTO) 5.7 % (21-51); MEAN CORPUSCULAR HEMOGLOBIN 29.5 PG (27.0-31.0); MEAN CORPUSCULAR HGB CONC 31.7 g/dL (33.0-36.5); MEAN CORPUSCULAR VOLUME 93.2 FL (78-98); MEAN PLATELET VOLUME 7.8 FL (7.4-10.4); MONOCYTES # (AUTO) 1.5 X10'3 (0-0.9); MONOCYTES % (AUTO) 7.7 % (2-12); NEUTROPHILS # (AUTO) 16.2 X10'3 (1.8-7.7); PLATELET COUNT 344 X10'3 (140-440); RED BLOOD COUNT 2.75 X10'6 (4.20-5.60)
[2020-11-21 23:03] LABS: ALANINE AMINOTRANSFERASE 11 U/L (12-78); ALBUMIN 1.8 G/DL (3.4-5.0); ALBUMIN/GLOBULIN RATIO 0.4 (1.1-1.5); ALKALINE PHOSPHATASE 125 IU/L (46-116); ANION GAP 23 (8-16); ASPARTATE AMINO TRANSFERASE 19 U/L (10-37); BILIRUBIN,TOTAL 0.2 MG/DL (0.1-1.0); BLOOD UREA NITROGEN 102 MG/DL (7-18); BUN/CREATININE RATIO 10.4 (6.6-38.0); CALCIUM 6.7 MG/DL (8.5-10.1); CHLORIDE 109 MMOL/L (99-107); CREATININE 9.83 MG/DL (0.40-0.90); GLUCOSE 65 MG/DL (70-104); POTASSIUM 4.1 MMOL/L (3.5-5.1); SODIUM 139 MMOL/L (135-145); TOTAL PROTEIN 6.1 G/DL (6.4-8.2); TROPONIN I < 0.04 NG/ML (0.0-0.05); eGFR 4 ML/MIN
[2020-11-21 23:14] LABS: TOTAL CARBON DIOXIDE 7.4 MMOL/L (24-32)
--- NOTE | 2020-11-21 23:39 | NUR ---
DR. WATKINS AWARE OF PATIENT DROPPING BS AND CRITICAL CO2, ORDERS RECEIVED SEE MAR
[2020-11-21] MEDS ORDERED: dextrose 5%-water 1,000 ML IV SCH (23:45)
[2020-11-22] VITALS (15 sets, daily range): BP systolic 119–156; BP diastolic 49–79
[2020-11-22] MEDS ORDERED: CefTRIAXone 2gm/D5W 50ml BAG 50 ML IV ONE (00:35)
[2020-11-22 01:25] LABS: PARTIAL THROMBOPLASTIN TIME 36 SECONDS (22-32)
[2020-11-22 01:35] LABS: ABG BASE EXCESS -20.7 mmol/L (-2.0-2.0); ABG HCO3 6.1 mmol/L (22.0-26.0); ABG OXYGEN SATURATION 97.5 % (94-97); ABG PCO2 (T) 17.6 mmHg (32.0-45.0); ABG PO2 (T) 107.8 mmHg (75.0-100.0); ALLEN'S TEST POSITIVE; FCOHb 0.3 % (0.0-3.9); FMetHb 0.5 % (0.0-1.5); FO2Hb 96.7 % (94-97); PATIENT TEMPERATURE 36.7; TOTAL HEMOGLOBIN 7.9 G/dl (12.0-16.0)
[2020-11-22 01:37] LABS: MAGNESIUM 1.6 MG/DL (1.5-2.4)
[2020-11-22] MEDS ORDERED: CefTRIAXone/D5W-Rocephin 1gm 50 ML IV ONE (01:40)
[2020-11-22 01:55] LABS: CLARITY,URINE TURBID (Clear); COLOR,URINE YELLOW (Yellow); GLUCOSE, URINE NEGATIVE (Neg); KETONES,URINE NEGATIVE (Neg); LEUKOCYTE ESTERASE ,URINE MODERATE (Neg); NITRITES, URINE NEGATIVE (Neg); OCCULT BLOOD,URINE MODERATE (Neg); PH,URINE 5.5 (4.8-8.0); PROTEIN,URINE 100 mg/dl (Neg); UROBILINOGEN,URINE 0.2 E.U/dL (0.2-1.0)
[2020-11-22 02:00] LABS: UA COLLECTION TYPE FOLEY CATH
[2020-11-22 02:04] LABS: BACTERIA,URINE 4+ /HPF (Neg); RBC,URINE NONE SEEN /HPF (0-2); SQUAMOUS EPITHELIAL CELL,UR MODERATE /LPF (FEW); WBC,URINE TNTC /HPF (0-4)
[2020-11-22] MEDS ORDERED: SERT-433 PO (02:24)
[2020-11-22] MEDS ORDERED: ATOR40TA72 PO (02:24)
[2020-11-22] MEDS ORDERED: CARV6.253 PO (02:25)
[2020-11-22] MEDS ORDERED: INSU100I31 SQ (02:28)
[2020-11-22] MEDS ORDERED: LIDOcaine 2% 10ml TOPICAL JELLY (Urojet) TP ONE (03:45)
[2020-11-22] MEDS ORDERED: magnesium 2GM in 50ml NS 50 ML IV PRN (03:45)
[2020-11-22] MEDS ORDERED: acetaminophen 325mg tablet PO PRN (03:45)
[2020-11-22] MEDS ORDERED: magnesium Cl slow-release 64mg tablet PO PRN (03:45)
[2020-11-22] MEDS ORDERED: magnesium 4gm in 100ml NS 100 ML IV PRN (03:45)
[2020-11-22] MEDS ORDERED: ipratropium/albuterol 3ml nebule NEB PRN (03:45)
[2020-11-22] MEDS: sodium bicarbonate (8.4%) inj. 150 MEQ in dextrose 5%-water 1,000 ML IV SCH ×4 (04:00→22:00)
[2020-11-22] MEDS ORDERED: PERFLUTREN PROTEIN-A MICROSPHR (Optison) 0.22 MG/ML 3ML VIAL IV ONE (04:30)
--- NOTE | 2020-11-22 08:28 | NUR ---
phone report to jayden curriculum coordinator
--- NOTE | 2020-11-22 08:29 | NUR ---
braxton coleman gave phone report to jayden coleman icu
[2020-11-22] MEDS: heparin, porcine 5000 units/ml vial SQ SCH ×2 (08:47→19:14)
[2020-11-22] MEDS: famotidine/PF 10 mg/ml inj IV SCH (08:47)
[2020-11-22] MEDS ORDERED: AMLO10TA13 PO (09:38)
[2020-11-22] MEDS ORDERED: CHOL20002 PO (09:38)
[2020-11-22 10:44] LABS: CLARITY,URINE CLOUDY (Clear); COLOR,URINE YELLOW (Yellow); GLUCOSE, URINE NEGATIVE (Neg); KETONES,URINE NEGATIVE (Neg); LEUKOCYTE ESTERASE ,URINE MODERATE (Neg); NITRITES, URINE POSITIVE (Neg); OCCULT BLOOD,URINE LARGE (Neg); PH,URINE 5.5 (4.8-8.0); PROTEIN,URINE 100 mg/dl (Neg); UROBILINOGEN,URINE 0.2 E.U/dL (0.2-1.0)
[2020-11-22 10:51] LABS: UA COLLECTION TYPE NON-SPECIFIED
[2020-11-22 10:53] LABS: BACTERIA,URINE 1+ /HPF (Neg); MUCUS STRANDS NONE SEEN /LPF (Neg); RBC,URINE 0-2 /HPF (0-2); RENAL CELLS, URINE FEW /HPF; SQUAMOUS EPITHELIAL CELL,UR FEW /LPF (FEW); TRANSITIONAL EPI CELLS,URINE FEW /HPF; WBC,URINE TNTC /HPF (0-4)
[2020-11-22 10:54] LABS: ABG BASE EXCESS -18.6 mmol/L (-2.0-2.0); ABG HCO3 7.8 mmol/L (22.0-26.0); ABG OXYGEN SATURATION 97.4 % (94-97); ABG PO2 (T) 107.1 mmHg (75.0-100.0); ALLEN'S TEST POSITIVE; FCOHb 0.3 % (0.0-3.9); FMetHb 0.7 % (0.0-1.5); FO2Hb 96.4 % (94-97); TOTAL HEMOGLOBIN 7.9 G/dl (12.0-16.0)
[2020-11-22 10:56] LABS: TOTAL PROTEIN,URINE RANDOM 220.1 MG/DL
[2020-11-22 11:22] LABS: UA EOSINOPHILS NO EOS /HPF
[2020-11-22] MEDS: CefTRIAXone/D5W-Rocephin 1gm 50 ML IV SCH (22:01)
[2020-11-23] VITALS (33 sets, daily range): BP systolic 123–169; BP diastolic 40–70
--- NOTE | 2020-11-23 06:00 | NUR ---
Patient in room ICU 2045. I have received report from Boston NEWMAN and had the opportunity to ask questions and assume patient care.
[2020-11-23] MEDS: heparin, porcine 5000 units/ml vial SQ SCH ×2 (07:13→21:01)
[2020-11-23] MEDS: famotidine/PF 10 mg/ml inj IV SCH (07:13)
[2020-11-23] MEDS: ondansetron/PF 4mg/2ml inj IV PRN (08:14)
[2020-11-23 08:59] LABS: BASOPHILS % (AUTO) 0.3 % (0-1); EOSINOPHILS # (AUTO) 0.4 X10'3 (0-0.9); EOSINOPHILS % (AUTO) 2.5 % (0-6); LYMPHOCYTES # (AUTO) 0.9 X10'3 (1.1-4.8); LYMPHOCYTES % (AUTO) 6.5 % (21-51); MEAN CORPUSCULAR HEMOGLOBIN 29.3 PG (27.0-31.0); MEAN CORPUSCULAR HGB CONC 32.8 g/dL (33.0-36.5); MEAN CORPUSCULAR VOLUME 89.2 FL (78-98); MEAN PLATELET VOLUME 8.3 FL (7.4-10.4); MONOCYTES # (AUTO) 1.3 X10'3 (0-0.9); NEUTROPHILS # (AUTO) 11.6 X10'3 (1.8-7.7); NEUTROPHILS % (AUTO) 81.7 % (42-75); PLATELET COUNT 261 X10'3 (140-440); RED CELL DISTRIBUTION WIDTH 16.9 % (11.5-14.5); WHITE BLOOD COUNT 14.1 X10'3 (4.5-11.0)
[2020-11-23 09:04] LABS: HEMATOCRIT 20.5 % (35.0-45.0); HEMOGLOBIN 6.7 g/dl (12.0-16.0)
[2020-11-23 09:12] LABS: ALBUMIN 1.4 G/DL (3.4-5.0); ANION GAP 18 (8-16); BLOOD UREA NITROGEN 92 MG/DL (7-18); BUN/CREATININE RATIO 10.4 (6.6-38.0); CHLORIDE 102 MMOL/L (99-107); CREATININE 8.83 MG/DL (0.40-0.90); GLUCOSE 99 MG/DL (70-104); MAGNESIUM 1.2 MG/DL (1.5-2.4); PHOSPHORUS 8.5 MG/DL (2.3-4.5); SODIUM 137 MMOL/L (135-145); TOTAL CARBON DIOXIDE 16.9 MMOL/L (24-32); eGFR 5 ML/MIN
[2020-11-23 09:18] LABS: CALCIUM 5.7 MG/DL (8.5-10.1); POTASSIUM 2.8 MMOL/L (3.5-5.1)
--- NOTE | 2020-11-23 09:51 | NUR ---
Attempted to call Dr. Rodas for critical H&H 6.7/20.5, K 2.8, Ca 5.7. No answer, will try again.
--- NOTE | 2020-11-23 12:30 | NUR ---
Dr. Rodas at bedside, Informed MD that H&H 6.7/20.5, K 2.8, Ca 5.7, phos 8.5, Mg 1.2, Cr 8.83, and that pt has been vomiting. ordered K replacement, 2units PRBC, reglan 5mg IV q8H prn.
[2020-11-23] MEDS: atorvastatin 20mg tablet PO SCH (13:03)
[2020-11-23] MEDS ORDERED: cholecalciferol (vitamin D3) 1,000 unit (25mcg) tablet PO SCH ×2 (13:04)
[2020-11-23] MEDS: cholecalciferol (vitamin D3) 1,000 unit (25mcg) tablet PO SCH (13:04)
[2020-11-23] MEDS ORDERED: potassium Cl 20 mEq SR tablet PO PRN ×2 (13:10)
[2020-11-23] MEDS: sodium bicarbonate (8.4%) inj. 150 MEQ in dextrose 5%-water 1,000 ML IV SCH ×2 (13:43→21:00)
[2020-11-23 13:59] LABS: MEAN CORPUSCULAR HEMOGLOBIN 29.6 PG (27.0-31.0); MEAN CORPUSCULAR HGB CONC 33.3 g/dL (33.0-36.5); MEAN CORPUSCULAR VOLUME 88.8 FL (78-98); MEAN PLATELET VOLUME 8.2 FL (7.4-10.4); PLATELET COUNT 236 X10'3 (140-440); RED BLOOD COUNT 2.18 X10'6 (4.20-5.60); RED CELL DISTRIBUTION WIDTH 16.7 % (11.5-14.5); WHITE BLOOD COUNT 12.5 X10'3 (4.5-11.0)
[2020-11-23 14:00] LABS: HEMATOCRIT 19.3 % (35.0-45.0); HEMOGLOBIN 6.4 g/dl (12.0-16.0)
[2020-11-23] MEDS: metoclopramide 5 mg/ml inj IV PRN (14:09)
[2020-11-23] MEDS: potassium Cl 40MEQ/1/2NS 520ml 520 ML IV PRN (14:43)
[2020-11-23 16:07] LABS: PARTIAL THROMBOPLASTIN TIME 32 SECONDS (22-32)
[2020-11-23] MEDS: calcium acetate 667mg (PhosLO) capsule PO SCH (17:24)
--- NOTE | 2020-11-23 18:17 | NUR ---
Problems reprioritized. Patient report given, questions answered & plan of care reviewed with Nicolas NEWMAN.
--- NOTE | 2020-11-23 18:23 | NUR ---
Patient in room ICU 2045. I have received report from lila Lau and had the opportunity to ask questions and assume patient care.
[2020-11-23 19:48] LABS: OCCULT BLOOD STOOL NEGATIVE (Neg)
[2020-11-23] MEDS: polyethylene glycol 3350 17gm powd pack PO SCH (21:00)
[2020-11-23] MEDS: lactobacillus rhamnosus 10,000 MMU CELLS/CAPSULE PO SCH (21:01)
[2020-11-23] MEDS: CefTRIAXone/D5W-Rocephin 1gm 50 ML IV SCH (23:26)
[2020-11-24] VITALS (24 sets, daily range): BP systolic 137–166; BP diastolic 58–96
[2020-11-24] MEDS: metoclopramide 5 mg/ml inj IV PRN (00:36)
[2020-11-24] MEDS ORDERED: polyethylene glycol 3350 17gm powd pack PO PRN (03:45)
[2020-11-24 06:07] LABS: BASOPHILS % (AUTO) 0.3 % (0-1); EOSINOPHILS # (AUTO) 0.2 X10'3 (0-0.9); EOSINOPHILS % (AUTO) 1.5 % (0-6); HEMATOCRIT 24.6 % (35.0-45.0); HEMOGLOBIN 8.3 g/dl (12.0-16.0); LYMPHOCYTES # (AUTO) 0.7 X10'3 (1.1-4.8); LYMPHOCYTES % (AUTO) 6.8 % (21-51); MEAN CORPUSCULAR HGB CONC 33.8 g/dL (33.0-36.5); MEAN CORPUSCULAR VOLUME 85.6 FL (78-98); MONOCYTES # (AUTO) 1.1 X10'3 (0-0.9); MONOCYTES % (AUTO) 11.1 % (2-12); NEUTROPHILS % (AUTO) 80.3 % (42-75); PLATELET COUNT 215 X10'3 (140-440); RED BLOOD COUNT 2.88 X10'6 (4.20-5.60); RED CELL DISTRIBUTION WIDTH 19.8 % (11.5-14.5)
--- NOTE | 2020-11-24 06:14 | NUR ---
Problems reprioritized. Patient report given, questions answered & plan of care reviewed with Chaparrita NEWMAN.
[2020-11-24 06:33] LABS: ALBUMIN 1.4 G/DL (3.4-5.0); ANION GAP 15 (8-16); BLOOD UREA NITROGEN 86 MG/DL (7-18); BUN/CREATININE RATIO 10.2 (6.6-38.0); CHLORIDE 101 MMOL/L (99-107); CREATININE 8.44 MG/DL (0.40-0.90); GLUCOSE 100 MG/DL (70-104); MAGNESIUM 1.1 MG/DL (1.5-2.4); PHOSPHORUS 7.5 MG/DL (2.3-4.5); SODIUM 139 MMOL/L (135-145); eGFR 5 ML/MIN
[2020-11-24 06:39] LABS: CALCIUM 5.1 MG/DL (8.5-10.1)
[2020-11-24] MEDS: famotidine/PF 10 mg/ml inj IV SCH (07:44)
[2020-11-24] MEDS: sodium bicarbonate (8.4%) inj. 150 MEQ in dextrose 5%-water 1,000 ML IV SCH ×3 (07:44→19:30)
[2020-11-24] MEDS: calcium acetate 667mg (PhosLO) capsule PO SCH ×3 (07:45→20:54)
[2020-11-24] MEDS: heparin, porcine 5000 units/ml vial SQ SCH ×2 (07:45→20:55)
[2020-11-24] MEDS: atorvastatin 20mg tablet PO SCH (07:45)
[2020-11-24] MEDS: cholecalciferol (vitamin D3) 1,000 unit (25mcg) tablet PO SCH (07:46)
[2020-11-24] MEDS: lactobacillus rhamnosus 10,000 MMU CELLS/CAPSULE PO SCH ×2 (07:46→20:54)
[2020-11-24 08:18] LABS: ANISOCYTOSIS 2+; HYPOCHROMASIA 1+; PLATELET ESTIMATE NORMAL; POLYCHROMASIA 1+
[2020-11-24] MEDS: potassium Cl 40MEQ/1/2NS 520ml 520 ML IV PRN (09:02)
[2020-11-24] MEDS: ondansetron/PF 4mg/2ml inj IV PRN (18:08)
--- NOTE | 2020-11-24 18:32 | NUR ---
Patient in room ICU 2045. I have received report from Chaparrita NEWMAN and had the opportunity to ask questions and assume patient care.
--- NOTE | 2020-11-24 19:06 | NUR ---
received pt, pt had some nausea and threw up some of her dinner. Zofran was administered. Pt was also transferred from chair to her bed
--- NOTE | 2020-11-24 20:23 | NUR ---
pt had a small liquid bm, performed full pt bed change
[2020-11-24] MEDS: polyethylene glycol 3350 17gm powd pack PO SCH (20:55)
[2020-11-24] MEDS: CefTRIAXone/D5W-Rocephin 1gm 50 ML IV SCH (23:45)
[2020-11-25] VITALS (18 sets, daily range): BP systolic 136–176; BP diastolic 64–93
[2020-11-25] MEDS: sodium bicarbonate (8.4%) inj. 150 MEQ in dextrose 5%-water 1,000 ML IV SCH ×2 (04:22→07:22)
--- NOTE | 2020-11-25 06:05 | NUR ---
Problems reprioritized. Patient report given, questions answered & plan of care reviewed with Chaparrita NEWMAN.
[2020-11-25 06:33] LABS: BASOPHILS % (AUTO) 0.2 % (0-1); EOSINOPHILS # (AUTO) 0.2 X10'3 (0-0.9); EOSINOPHILS % (AUTO) 2.1 % (0-6); HEMATOCRIT 25.5 % (35.0-45.0); HEMOGLOBIN 8.7 g/dl (12.0-16.0); LYMPHOCYTES # (AUTO) 0.9 X10'3 (1.1-4.8); LYMPHOCYTES % (AUTO) 8.2 % (21-51); MEAN CORPUSCULAR HEMOGLOBIN 28.7 PG (27.0-31.0); MEAN CORPUSCULAR HGB CONC 34.1 g/dL (33.0-36.5); MEAN CORPUSCULAR VOLUME 84.2 FL (78-98); MEAN PLATELET VOLUME 7.7 FL (7.4-10.4); MONOCYTES # (AUTO) 1.3 X10'3 (0-0.9); MONOCYTES % (AUTO) 11.3 % (2-12); NEUTROPHILS # (AUTO) 8.9 X10'3 (1.8-7.7); NEUTROPHILS % (AUTO) 78.2 % (42-75); PLATELET COUNT 204 X10'3 (140-440); RED BLOOD COUNT 3.03 X10'6 (4.20-5.60); RED CELL DISTRIBUTION WIDTH 19.5 % (11.5-14.5); WHITE BLOOD COUNT 11.4 X10'3 (4.5-11.0)
[2020-11-25 07:02] LABS: ALBUMIN 1.4 G/DL (3.4-5.0); ANION GAP 10 (8-16); BLOOD UREA NITROGEN 80 MG/DL (7-18); BUN/CREATININE RATIO 10.1 (6.6-38.0); CHLORIDE 99 MMOL/L (99-107); CREATININE 7.92 MG/DL (0.40-0.90); GLUCOSE 83 MG/DL (70-104); MAGNESIUM 1.5 MG/DL (1.5-2.4); PHOSPHORUS 6.6 MG/DL (2.3-4.5); SODIUM 139 MMOL/L (135-145); TOTAL CARBON DIOXIDE 29.8 MMOL/L (24-32); eGFR 5 ML/MIN
[2020-11-25 07:06] LABS: CALCIUM 5.1 MG/DL (8.5-10.1)
[2020-11-25] MEDS: famotidine/PF 10 mg/ml inj IV SCH (07:23)
[2020-11-25] MEDS: heparin, porcine 5000 units/ml vial SQ SCH ×2 (07:23→20:30)
[2020-11-25] MEDS: lactobacillus rhamnosus 10,000 MMU CELLS/CAPSULE PO SCH ×2 (07:23→20:29)
[2020-11-25] MEDS: cholecalciferol (vitamin D3) 1,000 unit (25mcg) tablet PO SCH (07:23)
[2020-11-25] MEDS: calcium acetate 667mg (PhosLO) capsule PO SCH ×3 (07:23→17:49)
[2020-11-25] MEDS: atorvastatin 20mg tablet PO SCH (07:24)
[2020-11-25] MEDS: guaiFENesin ER 600mg tablet PO SCH ×2 (07:24→20:29)
--- NOTE | 2020-11-25 12:01 | NUR ---
Initial: Pt admit DX urosepsis, acute renal failure, CKD, DM, and metabolic acidosis per EMR. Advanced to renal diet from clear liquids w/ PO improving to 75-100% since solid meals 11/23. Pt hx DM though no A1C and GLU WNL not on glycemic protocol; no need for carb controlled diet at this time. Phos 6.6 receiving Phoslo w/ meals w/ K 3.0 receiving replacement and Mg up to 1.5 from initial 1.1 per EMR. LBM 11/24. Will continue to monitor for further PO trends and ONS needs this admit. Rec: 1. continue renal diet 2. monitor for ONS needs 3. routine bowel care 4. Phos binder w/ meals per MD 5. weekly wts Addendum: 11/25/20 at [address] Amended: Links added.
--- NOTE | 2020-11-25 15:00 | NUR ---
Patient in room MED 308. I have received report from Chaparrita NEWMAN and had the opportunity to ask questions and assume patient care.
--- NOTE | 2020-11-25 16:00 | NUR ---
Reviewed Chaparrita NEWMAN's physical assessment and agree.
[2020-11-25] MEDS: polyethylene glycol 3350 17gm powd pack PO SCH (20:29)
[2020-11-26] MEDS: CefTRIAXone/D5W-Rocephin 1gm 50 ML IV SCH (00:35)
[2020-11-26] MEDS: acetaminophen 325mg tablet PO PRN (00:49)
[2020-11-26 02:00] VITALS: BP 145/65
--- NOTE | 2020-11-26 02:16 | NUR ---
patient had a bowel moment. Completed linen change with miguelito care. Patient feels comfortable. Alert, oriented, Not under any distress. Call light within reach. All needs are met.
[2020-11-26 06:00] VITALS: BP 161/68
--- NOTE | 2020-11-26 06:00 | NUR ---
Patient in room MED 308. I have received report from Siri NEWMAN and had the opportunity to ask questions and assume patient care.
[2020-11-26 06:24] LABS: ALBUMIN 1.4 G/DL (3.4-5.0); ANION GAP 10 (8-16); BLOOD UREA NITROGEN 81 MG/DL (7-18); BUN/CREATININE RATIO 10.3 (6.6-38.0); CHLORIDE 100 MMOL/L (99-107); CREATININE 7.84 MG/DL (0.40-0.90); GLUCOSE 72 MG/DL (70-104); MAGNESIUM 1.4 MG/DL (1.5-2.4); PHOSPHORUS 6.6 MG/DL (2.3-4.5); POTASSIUM 3.8 MMOL/L (3.5-5.1); SODIUM 141 MMOL/L (135-145); TOTAL CARBON DIOXIDE 31.5 MMOL/L (24-32); eGFR 5 ML/MIN
--- NOTE | 2020-11-26 06:25 | NUR ---
Problems reprioritized. Patient report given, questions answered & plan of care reviewed with Shoshana(PCU).
[2020-11-26 06:26] LABS: BASOPHILS % (AUTO) 0.3 % (0-1); EOSINOPHILS # (AUTO) 0.2 X10'3 (0-0.9); EOSINOPHILS % (AUTO) 2.2 % (0-6); HEMATOCRIT 24.1 % (35.0-45.0); HEMOGLOBIN 8.2 g/dl (12.0-16.0); LYMPHOCYTES # (AUTO) 1.3 X10'3 (1.1-4.8); LYMPHOCYTES % (AUTO) 11.9 % (21-51); MEAN CORPUSCULAR HEMOGLOBIN 29.1 PG (27.0-31.0); MEAN CORPUSCULAR HGB CONC 33.9 g/dL (33.0-36.5); MEAN PLATELET VOLUME 8.1 FL (7.4-10.4); MONOCYTES # (AUTO) 1.4 X10'3 (0-0.9); MONOCYTES % (AUTO) 12.3 % (2-12); NEUTROPHILS # (AUTO) 8.1 X10'3 (1.8-7.7); NEUTROPHILS % (AUTO) 73.3 % (42-75); PLATELET COUNT 192 X10'3 (140-440); RED CELL DISTRIBUTION WIDTH 19.5 % (11.5-14.5)
[2020-11-26 06:30] LABS: CALCIUM 5.7 MG/DL (8.5-10.1)
[2020-11-26] MEDS: guaiFENesin ER 600mg tablet PO SCH ×2 (07:43→20:22)
[2020-11-26] MEDS: lactobacillus rhamnosus 10,000 MMU CELLS/CAPSULE PO SCH ×2 (07:43→20:22)
[2020-11-26] MEDS: famotidine/PF 10 mg/ml inj IV SCH (07:43)
[2020-11-26] MEDS: cholecalciferol (vitamin D3) 1,000 unit (25mcg) tablet PO SCH (07:44)
[2020-11-26] MEDS: calcium acetate 667mg (PhosLO) capsule PO SCH ×3 (07:44→18:02)
[2020-11-26] MEDS: atorvastatin 20mg tablet PO SCH (07:44)
[2020-11-26] MEDS: heparin, porcine 5000 units/ml vial SQ SCH ×2 (07:45→20:22)
[2020-11-26 11:00] VITALS: BP 167/75
[2020-11-26 18:00] VITALS: BP 173/78
--- NOTE | 2020-11-26 18:20 | NUR ---
Problems reprioritized. Patient report given, questions answered & plan of care reviewed with Siri NEWMAN.
--- NOTE | 2020-11-26 18:25 | NUR ---
Patient in room MED 308. I have received report from Blas-RN(PCU), and had the opportunity to ask questions and assume patient care.
[2020-11-26] MEDS: polyethylene glycol 3350 17gm powd pack PO SCH (20:22)
[2020-11-26 22:00] VITALS: BP 165/73
[2020-11-27] MEDS: CefTRIAXone/D5W-Rocephin 1gm 50 ML IV SCH (00:37)
[2020-11-27 02:00] VITALS: BP 165/73
--- NOTE | 2020-11-27 02:00 | NUR ---
Patient big BM. Complete linen change, miguelito-care, Pacheco care, barrier cream in the sacrum area with optifoam applied. Patients resting well. Not at any distress. Resting comfortably. Call light within reach. All needs are met.
[2020-11-27] MEDS: acetaminophen 325mg tablet PO PRN (02:25)
[2020-11-27 06:30] VITALS: BP 168/72
[2020-11-27 06:38] LABS: BASOPHILS # (AUTO) 0.1 X10'3 (0-0.2); BASOPHILS % (AUTO) 0.5 % (0-1); EOSINOPHILS # (AUTO) 0.3 X10'3 (0-0.9); EOSINOPHILS % (AUTO) 2.8 % (0-6); HEMATOCRIT 24.7 % (35.0-45.0); HEMOGLOBIN 8.2 g/dl (12.0-16.0); LYMPHOCYTES # (AUTO) 1.4 X10'3 (1.1-4.8); LYMPHOCYTES % (AUTO) 11.8 % (21-51); MEAN CORPUSCULAR HEMOGLOBIN 28.6 PG (27.0-31.0); MEAN CORPUSCULAR HGB CONC 33.1 g/dL (33.0-36.5); MEAN CORPUSCULAR VOLUME 86.6 FL (78-98); MEAN PLATELET VOLUME 7.9 FL (7.4-10.4); MONOCYTES # (AUTO) 1.2 X10'3 (0-0.9); MONOCYTES % (AUTO) 10.1 % (2-12); NEUTROPHILS # (AUTO) 8.7 X10'3 (1.8-7.7); NEUTROPHILS % (AUTO) 74.8 % (42-75); PLATELET COUNT 195 X10'3 (140-440); RED BLOOD COUNT 2.85 X10'6 (4.20-5.60); RED CELL DISTRIBUTION WIDTH 19.4 % (11.5-14.5); WHITE BLOOD COUNT 11.7 X10'3 (4.5-11.0)
--- NOTE | 2020-11-27 06:42 | NUR ---
Problems reprioritized. Patient report given, questions answered & plan of care reviewed with Pat-RN.
[2020-11-27 06:47] LABS: ALBUMIN 1.4 G/DL (3.4-5.0); ANION GAP 10 (8-16); BLOOD UREA NITROGEN 81 MG/DL (7-18); BUN/CREATININE RATIO 10.5 (6.6-38.0); CALCIUM 6.3 MG/DL (8.5-10.1); CHLORIDE 102 MMOL/L (99-107); GLUCOSE 71 MG/DL (70-104); MAGNESIUM 1.4 MG/DL (1.5-2.4); PHOSPHORUS 6.5 MG/DL (2.3-4.5); POTASSIUM 3.9 MMOL/L (3.5-5.1); SODIUM 141 MMOL/L (135-145); TOTAL CARBON DIOXIDE 28.6 MMOL/L (24-32); eGFR 5 ML/MIN
[2020-11-27] MEDS: cholecalciferol (vitamin D3) 1,000 unit (25mcg) tablet PO SCH (07:27)
[2020-11-27] MEDS: famotidine 20mg tablet PO SCH (07:27)
[2020-11-27] MEDS: heparin, porcine 5000 units/ml vial SQ SCH ×2 (07:28→20:58)
[2020-11-27] MEDS: atorvastatin 20mg tablet PO SCH (07:29)
[2020-11-27] MEDS: calcium acetate 667mg (PhosLO) capsule PO SCH ×3 (07:29→18:58)
[2020-11-27] MEDS: lactobacillus rhamnosus 10,000 MMU CELLS/CAPSULE PO SCH ×2 (07:29→20:58)
[2020-11-27] MEDS: guaiFENesin ER 600mg tablet PO SCH ×2 (07:29→20:58)
[2020-11-27 11:00] VITALS: BP 159/77
[2020-11-27 15:00] VITALS: BP 147/78
[2020-11-27 18:00] VITALS: BP 147/78
--- NOTE | 2020-11-27 18:40 | NUR ---
Patient in room MED 308. I have received report from Pat RN and had the opportunity to ask questions and assume patient care. Patient eating dinner, introduced self and discussed plan of care for the evening, patient denies needs.
[2020-11-27] MEDS: polyethylene glycol 3350 17gm powd pack PO SCH (20:57)
[2020-11-27 22:00] VITALS: BP 147/78
[2020-11-28] MEDS: CefTRIAXone/D5W-Rocephin 1gm 50 ML IV SCH (00:20)
[2020-11-28 02:00] VITALS: BP 155/77
[2020-11-28 06:05] LABS: BASOPHILS % (AUTO) 0.4 % (0-1); EOSINOPHILS # (AUTO) 0.4 X10'3 (0-0.9); EOSINOPHILS % (AUTO) 3.4 % (0-6); HEMATOCRIT 24.1 % (35.0-45.0); LYMPHOCYTES # (AUTO) 1.4 X10'3 (1.1-4.8); LYMPHOCYTES % (AUTO) 12.3 % (21-51); MEAN CORPUSCULAR HEMOGLOBIN 28.9 PG (27.0-31.0); MEAN CORPUSCULAR HGB CONC 33.2 g/dL (33.0-36.5); MEAN CORPUSCULAR VOLUME 87.3 FL (78-98); MEAN PLATELET VOLUME 7.7 FL (7.4-10.4); MONOCYTES # (AUTO) 1.2 X10'3 (0-0.9); MONOCYTES % (AUTO) 10.6 % (2-12); NEUTROPHILS # (AUTO) 8.2 X10'3 (1.8-7.7); NEUTROPHILS % (AUTO) 73.3 % (42-75); PLATELET COUNT 189 X10'3 (140-440); RED BLOOD COUNT 2.76 X10'6 (4.20-5.60); RED CELL DISTRIBUTION WIDTH 19.3 % (11.5-14.5); WHITE BLOOD COUNT 11.1 X10'3 (4.5-11.0)
[2020-11-28 06:26] LABS: ALBUMIN 1.4 G/DL (3.4-5.0); ANION GAP 12 (8-16); BLOOD UREA NITROGEN 76 MG/DL (7-18); BUN/CREATININE RATIO 10.3 (6.6-38.0); CALCIUM 6.5 MG/DL (8.5-10.1); CHLORIDE 104 MMOL/L (99-107); CREATININE 7.41 MG/DL (0.40-0.90); GLUCOSE 73 MG/DL (70-104); MAGNESIUM 1.5 MG/DL (1.5-2.4); PHOSPHORUS 6.4 MG/DL (2.3-4.5); POTASSIUM 3.9 MMOL/L (3.5-5.1); SODIUM 143 MMOL/L (135-145); TOTAL CARBON DIOXIDE 27.2 MMOL/L (24-32); eGFR 6 ML/MIN
--- NOTE | 2020-11-28 06:35 | NUR ---
Problems reprioritized. Patient report given, questions answered & plan of care reviewed with Pat RN, Patient sleeping for bedside report.
[2020-11-28 07:00] VITALS: BP 192/65
[2020-11-28] MEDS: heparin, porcine 5000 units/ml vial SQ SCH ×2 (08:54→21:46)
[2020-11-28] MEDS: calcium acetate 667mg (PhosLO) capsule PO SCH ×3 (08:55→17:53)
[2020-11-28] MEDS: atorvastatin 20mg tablet PO SCH (08:55)
[2020-11-28] MEDS: guaiFENesin ER 600mg tablet PO SCH ×2 (08:55→21:45)
[2020-11-28] MEDS: cholecalciferol (vitamin D3) 1,000 unit (25mcg) tablet PO SCH (08:55)
[2020-11-28] MEDS: lactobacillus rhamnosus 10,000 MMU CELLS/CAPSULE PO SCH ×2 (08:55→21:45)
[2020-11-28] MEDS: famotidine 20mg tablet PO SCH (08:56)
[2020-11-28 11:00] VITALS: BP 172/69
--- NOTE | 2020-11-28 11:35 | NUR ---
George Consult: George Norwood w/ skin intact and IAD present per WOC. Pt advanced to carb controlled diet from prior renal PO ~75% avg meals meeting minimum estimated protein/kcal needs. [facility] 11/27 receiving routine bowel care. No nutrition intervention at this time. Will continue to monitor. Rec: 1. continue carb controlled diet per MD 2. routine bowel care 3. Phos binder w/ meals per MD 4. weekly wts Addendum: 11/28/20 at [address] Amended: Links added.
[2020-11-28 15:00] VITALS: BP 187/73
--- NOTE | 2020-11-28 15:17 | NUR ---
UP WITH PT TO CHAIR, TOLERATED WELL. CALL LIGHT IN REACH NO C/O AT THIS TIME.
[2020-11-28] MEDS ORDERED: furosemide 40mg/4ml inj IV ONE (16:05)
[2020-11-28 18:00] VITALS: BP 187/73
[2020-11-28] MEDS: polyethylene glycol 3350 17gm powd pack PO SCH (21:00)
[2020-11-28 22:00] VITALS: BP 166/66
[2020-11-29] MEDS: CefTRIAXone/D5W-Rocephin 1gm 50 ML IV SCH (00:22)
[2020-11-29 02:00] VITALS: BP 164/66
[2020-11-29 06:01] LABS: BASOPHILS % (AUTO) 0.5 % (0-1); EOSINOPHILS # (AUTO) 0.5 X10'3 (0-0.9); EOSINOPHILS % (AUTO) 4.9 % (0-6); HEMATOCRIT 23.6 % (35.0-45.0); HEMOGLOBIN 7.8 g/dl (12.0-16.0); LYMPHOCYTES # (AUTO) 1.3 X10'3 (1.1-4.8); LYMPHOCYTES % (AUTO) 13.3 % (21-51); MEAN CORPUSCULAR HEMOGLOBIN 28.8 PG (27.0-31.0); MEAN CORPUSCULAR VOLUME 87.4 FL (78-98); MEAN PLATELET VOLUME 7.7 FL (7.4-10.4); MONOCYTES # (AUTO) 1.1 X10'3 (0-0.9); MONOCYTES % (AUTO) 11.6 % (2-12); NEUTROPHILS # (AUTO) 6.6 X10'3 (1.8-7.7); NEUTROPHILS % (AUTO) 69.7 % (42-75); PLATELET COUNT 182 X10'3 (140-440); RED CELL DISTRIBUTION WIDTH 18.7 % (11.5-14.5); WHITE BLOOD COUNT 9.5 X10'3 (4.5-11.0)
--- NOTE | 2020-11-29 06:19 | NUR ---
Problems reprioritized. Patient report given, questions answered & plan of care reviewed with Patrice.
[2020-11-29 06:20] LABS: ALBUMIN 1.4 G/DL (3.4-5.0); ANION GAP 12 (8-16); BLOOD UREA NITROGEN 75 MG/DL (7-18); BUN/CREATININE RATIO 10.1 (6.6-38.0); CALCIUM 7.2 MG/DL (8.5-10.1); CHLORIDE 104 MMOL/L (99-107); CREATININE 7.43 MG/DL (0.40-0.90); GLUCOSE 69 MG/DL (70-104); MAGNESIUM 1.4 MG/DL (1.5-2.4); PHOSPHORUS 6.6 MG/DL (2.3-4.5); POTASSIUM 4.1 MMOL/L (3.5-5.1); SODIUM 144 MMOL/L (135-145); TOTAL CARBON DIOXIDE 27.7 MMOL/L (24-32); eGFR 6 ML/MIN
[2020-11-29 06:57] LABS: ANISOCYTOSIS 2+; ELLIPTOCYTES FEW; HYPOCHROMASIA 1+; PLATELET ESTIMATE NORMAL
[2020-11-29] MEDS ORDERED: magnesium 4gm in 100ml NS 100 ML IV PRN (07:00)
[2020-11-29] MEDS ORDERED: potassium Cl 40MEQ/1/2NS 520ml 520 ML IV PRN (07:00)
[2020-11-29] MEDS ORDERED: potassium Cl 20 mEq SR tablet PO PRN ×2 (07:00)
[2020-11-29 07:07] VITALS: BP 136/57
[2020-11-29] MEDS: K and/or MAG REPLACEMENT MC SCH ×2 (07:35→19:43)
[2020-11-29] MEDS: cholecalciferol (vitamin D3) 1,000 unit (25mcg) tablet PO SCH (08:01)
[2020-11-29] MEDS: heparin, porcine 5000 units/ml vial SQ SCH ×2 (08:01→19:39)
[2020-11-29] MEDS: guaiFENesin ER 600mg tablet PO SCH ×2 (08:02→19:39)
[2020-11-29] MEDS: atorvastatin 20mg tablet PO SCH (08:02)
[2020-11-29] MEDS: lactobacillus rhamnosus 10,000 MMU CELLS/CAPSULE PO SCH ×2 (08:02→19:38)
[2020-11-29] MEDS: famotidine 20mg tablet PO SCH (08:02)
[2020-11-29] MEDS: calcium acetate 667mg (PhosLO) capsule PO SCH ×3 (08:02→18:27)
[2020-11-29] MEDS: magnesium Cl slow-release 64mg tablet PO PRN ×2 (09:04→19:39)
[2020-11-29 11:11] VITALS: BP 167/72
[2020-11-29 15:15] VITALS: BP 171/69
[2020-11-29 18:00] VITALS: BP 176/77
--- NOTE | 2020-11-29 18:29 | NUR ---
Problems reprioritized. Patient report given, questions answered & plan of care reviewed with Ifeoma NEWMAN.
[2020-11-29] MEDS: polyethylene glycol 3350 17gm powd pack PO SCH (21:00)
[2020-11-29 22:00] VITALS: BP 186/90
[2020-11-30] VITALS (7 sets, daily range): BP systolic 170–201; BP diastolic 71–95
[2020-11-30] MEDS: CefTRIAXone/D5W-Rocephin 1gm 50 ML IV SCH (00:35)
[2020-11-30 06:27] LABS: ALBUMIN 1.5 G/DL (3.4-5.0); ANION GAP 14 (8-16); BLOOD UREA NITROGEN 72 MG/DL (7-18); BUN/CREATININE RATIO 10.1 (6.6-38.0); CALCIUM 7.9 MG/DL (8.5-10.1); CHLORIDE 104 MMOL/L (99-107); CREATININE 7.15 MG/DL (0.40-0.90); GLUCOSE 71 MG/DL (70-104); MAGNESIUM 1.5 MG/DL (1.5-2.4); PHOSPHORUS 6.3 MG/DL (2.3-4.5); POTASSIUM 4.2 MMOL/L (3.5-5.1); SODIUM 144 MMOL/L (135-145); TOTAL CARBON DIOXIDE 26.4 MMOL/L (24-32); eGFR 6 ML/MIN
--- NOTE | 2020-11-30 06:28 | NUR ---
Problems reprioritized. Patient report given, questions answered & plan of care reviewed with Patrice.
[2020-11-30 06:48] LABS: BASOPHILS % (AUTO) 0.4 % (0-1); EOSINOPHILS # (AUTO) 0.4 X10'3 (0-0.9); EOSINOPHILS % (AUTO) 4.8 % (0-6); HEMATOCRIT 24.3 % (35.0-45.0); LYMPHOCYTES # (AUTO) 1.3 X10'3 (1.1-4.8); LYMPHOCYTES % (AUTO) 14.1 % (21-51); MEAN CORPUSCULAR HEMOGLOBIN 28.8 PG (27.0-31.0); MEAN CORPUSCULAR VOLUME 87.2 FL (78-98); MEAN PLATELET VOLUME 8.1 FL (7.4-10.4); NEUTROPHILS # (AUTO) 6.5 X10'3 (1.8-7.7); NEUTROPHILS % (AUTO) 69.7 % (42-75); PLATELET COUNT 176 X10'3 (140-440); RED BLOOD COUNT 2.78 X10'6 (4.20-5.60); RED CELL DISTRIBUTION WIDTH 18.9 % (11.5-14.5); WHITE BLOOD COUNT 9.4 X10'3 (4.5-11.0)
[2020-11-30] MEDS: K and/or MAG REPLACEMENT MC SCH ×2 (08:00→19:31)
[2020-11-30] MEDS: cholecalciferol (vitamin D3) 1,000 unit (25mcg) tablet PO SCH (08:28)
[2020-11-30] MEDS: lactobacillus rhamnosus 10,000 MMU CELLS/CAPSULE PO SCH ×2 (08:28→19:38)
[2020-11-30] MEDS: atorvastatin 20mg tablet PO SCH (08:28)
[2020-11-30] MEDS: famotidine 20mg tablet PO SCH (08:28)
[2020-11-30] MEDS: heparin, porcine 5000 units/ml vial SQ SCH ×2 (08:28→19:39)
[2020-11-30] MEDS: guaiFENesin ER 600mg tablet PO SCH ×2 (08:28→19:39)
[2020-11-30] MEDS: calcium acetate 667mg (PhosLO) capsule PO SCH ×3 (08:28→17:51)
[2020-11-30] MEDS: acetaminophen 325mg tablet PO PRN (11:15)
--- NOTE | 2020-11-30 18:11 | NUR ---
Patient in room MED 308. I have received report from PATY Beatty and had the opportunity to ask questions and assume patient care.
--- NOTE | 2020-11-30 19:08 | NUR ---
Page Sent PAGER ID: [phone] MESSAGE: RE: Elma Kennedy RM 308-A: Pt BP running 190s/80s manual, both arms. Can I get something for high BP please? Luiza ACCE [phone]
[2020-11-30] MEDS ORDERED: hydrALAZINE 25 MG tablet PO SCH (20:00)
[2020-11-30] MEDS: polyethylene glycol 3350 17gm powd pack PO SCH (21:00)
[2020-12-01] MEDS: CefTRIAXone/D5W-Rocephin 1gm 50 ML IV SCH
[2020-12-01] MEDS ORDERED: hydrALAZINE 25 MG tablet PO SCH
--- NOTE | 2020-12-01 00:38 | NUR ---
Pt DC'd IV today and does not want another one. Declined IV abx.
[2020-12-01 02:00] VITALS: BP 189/77
[2020-12-01 06:09] LABS: BASOPHILS # (AUTO) 0.1 X10'3 (0-0.2); BASOPHILS % (AUTO) 0.7 % (0-1); EOSINOPHILS # (AUTO) 0.5 X10'3 (0-0.9); EOSINOPHILS % (AUTO) 5.3 % (0-6); HEMATOCRIT 23.2 % (35.0-45.0); HEMOGLOBIN 7.8 g/dl (12.0-16.0); LYMPHOCYTES # (AUTO) 1.2 X10'3 (1.1-4.8); LYMPHOCYTES % (AUTO) 13.1 % (21-51); MEAN CORPUSCULAR HEMOGLOBIN 29.3 PG (27.0-31.0); MEAN CORPUSCULAR HGB CONC 33.6 g/dL (33.0-36.5); MEAN CORPUSCULAR VOLUME 87.3 FL (78-98); MEAN PLATELET VOLUME 7.7 FL (7.4-10.4); MONOCYTES # (AUTO) 0.9 X10'3 (0-0.9); MONOCYTES % (AUTO) 9.8 % (2-12); NEUTROPHILS # (AUTO) 6.5 X10'3 (1.8-7.7); NEUTROPHILS % (AUTO) 71.1 % (42-75); PLATELET COUNT 152 X10'3 (140-440); RED BLOOD COUNT 2.66 X10'6 (4.20-5.60); RED CELL DISTRIBUTION WIDTH 19.1 % (11.5-14.5); WHITE BLOOD COUNT 9.2 X10'3 (4.5-11.0)
--- NOTE | 2020-12-01 06:17 | NUR ---
Problems reprioritized. Patient report given, questions answered & plan of care reviewed with PATY Galvez.
[2020-12-01 06:20] LABS: ALBUMIN 1.5 G/DL (3.4-5.0); ANION GAP 10 (8-16); BLOOD UREA NITROGEN 68 MG/DL (7-18); BUN/CREATININE RATIO 9.7 (6.6-38.0); CALCIUM 7.9 MG/DL (8.5-10.1); CHLORIDE 104 MMOL/L (99-107); CREATININE 7.01 MG/DL (0.40-0.90); GLUCOSE 72 MG/DL (70-104); MAGNESIUM 1.4 MG/DL (1.5-2.4); PHOSPHORUS 6.4 MG/DL (2.3-4.5); POTASSIUM 4.2 MMOL/L (3.5-5.1); SODIUM 140 MMOL/L (135-145); TOTAL CARBON DIOXIDE 25.8 MMOL/L (24-32); eGFR 6 ML/MIN
[2020-12-01 06:37] LABS: ANISOCYTOSIS 2+; PLATELET ESTIMATE NORMAL; POLYCHROMASIA FEW
[2020-12-01 07:30] VITALS: BP 167/87
[2020-12-01] MEDS: K and/or MAG REPLACEMENT MC SCH ×2 (08:00→20:00)
[2020-12-01] MEDS: calcium acetate 667mg (PhosLO) capsule PO SCH ×3 (09:38→17:57)
[2020-12-01] MEDS: famotidine 20mg tablet PO SCH (09:38)
[2020-12-01] MEDS: cholecalciferol (vitamin D3) 1,000 unit (25mcg) tablet PO SCH (09:38)
[2020-12-01] MEDS: atorvastatin 20mg tablet PO SCH (09:39)
[2020-12-01] MEDS: hydrALAZINE 25 MG tablet PO SCH ×3 (09:39→23:40)
[2020-12-01] MEDS: lactobacillus rhamnosus 10,000 MMU CELLS/CAPSULE PO SCH ×2 (09:39→20:16)
[2020-12-01] MEDS: heparin, porcine 5000 units/ml vial SQ SCH ×2 (09:40→20:17)
[2020-12-01] MEDS: guaiFENesin ER 600mg tablet PO SCH ×2 (09:41→20:16)
[2020-12-01 18:00] VITALS: BP 167/73
--- NOTE | 2020-12-01 18:30 | NUR ---
Patient in room MED 308. I have received report from Leonor-PATY, and had the opportunity to ask questions and assume patient care.
[2020-12-01] MEDS: polyethylene glycol 3350 17gm powd pack PO SCH (20:17)
[2020-12-01 22:00] VITALS: BP 174/73
[2020-12-02 02:00] VITALS: BP 181/74
--- NOTE | 2020-12-02 02:07 | NUR ---
PAGER ID: [phone] MESSAGE: Marcia Wills 59F, admitted for uremia/urosepsis with hx of CVA, KELLEE with Cr being 7.01, improving. On hydralazine 25mg po q8hr. But SBP still in 160's-180's. No PRN BP med. She may benefit from IV hydralazine. Siri-PATY [phone].
--- NOTE | 2020-12-02 02:16 | NUR ---
Dr. Chavez called back and ordered hydralazine 10mg IV Once now. No other orders were given at this time.
[2020-12-02] MEDS ORDERED: hydrALAZINE 20mg/ml inj. IV ONE (02:20)
--- NOTE | 2020-12-02 03:19 | NUR ---
Patient refused the Hydralazine IV for high blood pressure despite explaining of the risk of stroke and IN with high blood pressure. Does not want new IV start. She says she will discharged home today.
--- NOTE | 2020-12-02 05:24 | NUR ---
Patient had a large BM. Completed linen changed, Francisca care, and Pacheco care completed. Patient feels much better. Resting comfortably. All needs are met.
[2020-12-02 06:00] VITALS: BP 177/75
[2020-12-02 06:05] LABS: BASOPHILS # (AUTO) 0.1 X10'3 (0-0.2); BASOPHILS % (AUTO) 0.7 % (0-1); EOSINOPHILS # (AUTO) 0.5 X10'3 (0-0.9); HEMATOCRIT 24.6 % (35.0-45.0); HEMOGLOBIN 8.2 g/dl (12.0-16.0); LYMPHOCYTES % (AUTO) 11.2 % (21-51); MEAN CORPUSCULAR HEMOGLOBIN 28.9 PG (27.0-31.0); MEAN CORPUSCULAR HGB CONC 33.2 g/dL (33.0-36.5); MEAN CORPUSCULAR VOLUME 87.1 FL (78-98); MEAN PLATELET VOLUME 7.8 FL (7.4-10.4); NEUTROPHILS # (AUTO) 6.5 X10'3 (1.8-7.7); NEUTROPHILS % (AUTO) 72.1 % (42-75); PLATELET COUNT 154 X10'3 (140-440); RED BLOOD COUNT 2.82 X10'6 (4.20-5.60)
--- NOTE | 2020-12-02 06:13 | NUR ---
Problems reprioritized. Patient report given, questions answered & plan of care reviewed with Julia-RN. The aid and RN were reminded to give the patient bed bath before discharge today, Because when I asked her when was the last time she had a shower/bed bath, she does not remember. Patient is alert, oriented x4. Not under any distress. Call light within reach. All needs are met.
[2020-12-02 06:16] LABS: ALBUMIN 1.7 G/DL (3.4-5.0); ANION GAP 14 (8-16); BLOOD UREA NITROGEN 69 MG/DL (7-18); BUN/CREATININE RATIO 10.2 (6.6-38.0); CALCIUM 8.6 MG/DL (8.5-10.1); CHLORIDE 104 MMOL/L (99-107); CREATININE 6.76 MG/DL (0.40-0.90); GLUCOSE 81 MG/DL (70-104); MAGNESIUM 1.4 MG/DL (1.5-2.4); PHOSPHORUS 6.3 MG/DL (2.3-4.5); POTASSIUM 4.1 MMOL/L (3.5-5.1); SODIUM 141 MMOL/L (135-145); TOTAL CARBON DIOXIDE 23.1 MMOL/L (24-32); eGFR 6 ML/MIN
--- NOTE | 2020-12-02 06:44 | NUR ---
Patient in room MED 308. I have received report from PATY Horner and had the opportunity to ask questions and assume patient care.
[2020-12-02] MEDS: famotidine 20mg tablet PO SCH (07:29)
[2020-12-02] MEDS: heparin, porcine 5000 units/ml vial SQ SCH (07:29)
[2020-12-02] MEDS: cholecalciferol (vitamin D3) 1,000 unit (25mcg) tablet PO SCH (07:30)
[2020-12-02] MEDS: calcium acetate 667mg (PhosLO) capsule PO SCH (07:30)
[2020-12-02] MEDS: lactobacillus rhamnosus 10,000 MMU CELLS/CAPSULE PO SCH (07:30)
--- NOTE | 2020-12-02 07:30 | NUR ---
Scanner not working, 2 RN verification used to administer medications.
[2020-12-02 07:31] VITALS: BP_SYST 177
[2020-12-02] MEDS: guaiFENesin ER 600mg tablet PO SCH (07:31)
[2020-12-02] MEDS: hydrALAZINE 25 MG tablet PO SCH (07:31)
[2020-12-02] MEDS: atorvastatin 20mg tablet PO SCH (07:31)
[2020-12-02] MEDS ORDERED: magnesium Cl slow-release 64mg tablet PO PRN (08:20)
[2020-12-02] MEDS: K and/or MAG REPLACEMENT MC SCH (08:33)
[2020-12-02] MEDS ORDERED: HYDR-4069 PO (09:29)
[2020-12-02] MEDS ORDERED: AMLO5TAB4 PO (09:29)
[2020-12-02 11:01] LABS: ANISOCYTOSIS 2+; LARGE PLATELETS FEW; PLATELET ESTIMATE NORMAL
--- NOTE | 2020-12-02 11:40 | NUR ---
Discharge delayed until patient can void. Pacheco removed at 0900. Will continue to monitor.
--- NOTE | 2020-12-02 13:10 | NUR ---
Patient is stable for discharge per MD orders. All discharge instructions reviewed with patient and caregiver and all questions answered. New prescriptions were sent to patient's pharmacy in [place]. PIV discontinued with cannula intact. nuclear monitoring technician discontinued. Belongings collected and sent with patient. Patient was wheeled to lobby in a wheelchair and left in a private vehicle with her caregiver.
[2020-12-02] MEDS ORDERED: CEFD300C3 PO (13:37)
== END 2020-12-02 13:40 | disposition home health service (06) | DRG 720 ==
LOC: ER 21:41 → ED HOLD 11-22 03:44 → ICU 2S 11-22 09:10 → MED 3N 11-25 15:25
PROVIDERS: ADMIT Internal Medicine; ATTEND Internal Medicine
PROC: 30233N1 Transfusion of Nonautologous Red Blood Cells into Peripheral Vein, Percutaneous Approach (ICD-10-PCS; principal; 2020-11-23)
PROC: CT131ZZ Planar Nuclear Medicine Imaging of Kidneys, Ureters and Bladder using Technetium 99m (Tc-99m) (ICD-10-PCS; 2020-11-25)
DX: A41.9 Sepsis, unspecified organism (principal); G93.41 Metabolic encephalopathy; N18.4 Chronic kidney disease, stage 4 (severe); N17.9 Acute kidney failure, unspecified; E87.2 Acidosis; E11.22 Type 2 diabetes mellitus with diabetic chronic kidney disease; E11.42 Type 2 diabetes mellitus with diabetic polyneuropathy; I48.91 Unspecified atrial fibrillation; E78.00 Pure hypercholesterolemia, unspecified; I13.0 Hypertensive heart and chronic kidney disease with heart failure and stage 1 through stage 4 chronic kidney disease, or unspecified chronic kidney disease; F41.9 Anxiety disorder, unspecified; K21.9 Gastro-esophageal reflux disease without esophagitis; I50.9 Heart failure, unspecified; Z60.2 Problems related to living alone; E78.5 Hyperlipidemia, unspecified; J44.9 Chronic obstructive pulmonary disease, unspecified; N39.0 Urinary tract infection, site not specified; B96.20 Unspecified Escherichia coli [E. coli] as the cause of diseases classified elsewhere; R09.02 Hypoxemia; Z80.3 Family history of malignant neoplasm of breast; Z90.49 Acquired absence of other specified parts of digestive tract; Z90.710 Acquired absence of both cervix and uterus; Z88.0 Allergy status to penicillin; Z88.8 Allergy status to other drugs, medicaments and biological substances; Z83.3 Family history of diabetes mellitus; Z82.49 Family history of ischemic heart disease and other diseases of the circulatory system; Z79.899 Other long term (current) drug therapy; I69.351 Hemiplegia and hemiparesis following cerebral infarction affecting right dominant side; Z99.3 Dependence on wheelchair
CPT/HCPCS: 36415; 36430; 36600; 71045; 76770; 78707; 80048; 80053; 81001; 82272; 82570; 82803; 82948; 83605; 83615; 83735; 83880; 84100; 84145; 84156; 84300; 84439; 84443; 84484; 85008; 85018; 85025; 85027; 85610; 85730; 86885; 86900; 86901; 86920; 87040; 87077; 87081; 87088; 87186; 87207; 93005; 93306; 93971; 94667; 94668; 94760; 97110; 97112; 97116; 97162; 97530; 97535; 99291; A9562; G0378; J0696; J1644; J1940; J2405; J2765; J3475; J3480; J3490; J7070; P9016

== ENCOUNTER 2021-03-06 01:47 | Inpatient (IN) | payer MEDICAID ==
[~2021-03-06] VITALS: Ht 157.5 cm; Wt 85.0 kg
[~2021-03-06 01:47] MED LIST changes: +AMLO5TAB4 PO; +ATOR40TA72 PO; -CARV-50 PO; -CHOL100046 PO; +CHOL20002 PO; +HYDR-4069 PO; +INSU100I31 SQ; -LINA5TAB4 PO; -LOSA25TA41 PO; -NOR5T PO; -PANT40TA54 PO
[2021-03-06] MEDS ORDERED: dextrose 5%-normal saline 1,000 ML IV ONE (02:20)
[2021-03-06 02:33] LABS: BASOPHILS # (AUTO) 0.1 X10'3 (0-0.2); BASOPHILS % (AUTO) 0.3 % (0-1); EOSINOPHILS % (AUTO) 0.2 % (0-6); HEMATOCRIT 27.2 % (35.0-45.0); HEMOGLOBIN 8.5 g/dl (12.0-16.0); LYMPHOCYTES # (AUTO) 1.1 X10'3 (1.1-4.8); LYMPHOCYTES % (AUTO) 3.9 % (21-51); MEAN CORPUSCULAR HEMOGLOBIN 31.2 PG (27.0-31.0); MEAN CORPUSCULAR HGB CONC 31.3 g/dL (33.0-36.5); MEAN CORPUSCULAR VOLUME 99.8 FL (78-98); MEAN PLATELET VOLUME 9.6 FL (7.4-10.4); MONOCYTES # (AUTO) 1.3 X10'3 (0-0.9); MONOCYTES % (AUTO) 4.6 % (2-12); PLATELET COUNT 253 X10'3 (140-440); RED BLOOD COUNT 2.73 X10'6 (4.20-5.60)
[2021-03-06 02:41] LABS: WHITE BLOOD COUNT 27.5 X10'3 (4.5-11.0)
[2021-03-06 02:56] LABS: ALANINE AMINOTRANSFERASE 16 U/L (12-78); ALBUMIN 2.1 G/DL (3.4-5.0); ALBUMIN/GLOBULIN RATIO 0.6 (1.1-1.5); ALKALINE PHOSPHATASE 114 IU/L (46-116); ANION GAP 24 (8-16); ASPARTATE AMINO TRANSFERASE 17 U/L (10-37); BILIRUBIN,TOTAL 0.2 MG/DL (0.1-1.0); BLOOD UREA NITROGEN 97 MG/DL (7-18); BUN/CREATININE RATIO 12.4 (6.6-38.0); CALCIUM 6.7 MG/DL (8.5-10.1); CHLORIDE 106 MMOL/L (99-107); CREATININE 7.84 MG/DL (0.40-0.90); GLUCOSE 90 MG/DL (70-104); MAGNESIUM 1.3 MG/DL (1.5-2.4); PHOSPHORUS 10.1 MG/DL (2.3-4.5); POTASSIUM 3.6 MMOL/L (3.5-5.1); SODIUM 140 MMOL/L (135-145); TOTAL PROTEIN 5.9 G/DL (6.4-8.2); TROPONIN I < 0.04 NG/ML (0.0-0.05); eGFR 5 ML/MIN
[2021-03-06 02:58] LABS: TOTAL CARBON DIOXIDE 9.8 MMOL/L (24-32)
--- NOTE | 2021-03-06 02:58 | NUR ---
critical reported to WBC 27.5 Phos 10.1 CO2 9.8
[2021-03-06 02:59] LABS: ETHANOL < 0.010 GM/DL (0.0-0.010)
[2021-03-06] MEDS ORDERED: azithromycin/NS 500mg/250ml 250 ML IV ONE (03:00)
[2021-03-06] MEDS ORDERED: CefTRIAXone/D5W-Rocephin 1gm 50 ML IV ONE (03:00)
[2021-03-06 03:20] LABS: NEUTROPHILS % (MANUAL) 92 % (42-75); TOTAL CELLS COUNTED 100
[2021-03-06 03:21] LABS: ANISOCYTOSIS 1+; BANDS% (MANUAL) 1 % (0-10); LYMPHOCYTES % (MANUAL) 3 % (21-51); MONOCYTES % (MANUAL) 4 % (2-12); PLATELET ESTIMATE NORMAL
[2021-03-06] MEDS ORDERED: acetaminophen 325mg tablet PO ONE (04:05)
--- NOTE | 2021-03-06 04:31 | NUR ---
PT GLUCOSE WAS STILL LOW IN 60S AT LAST ACCUCHECK; PROVIDER NOTIFIED; VERBAL ORDER TO UP D5 TO 50ML/HR INSTEAD OF THE 20ML/HR.
[2021-03-06 04:32] LABS: ABG BASE EXCESS -19.1 mmol/L (-2.0-2.0); ABG HCO3 6.4 mmol/L (22.0-26.0); ABG OXYGEN SATURATION 95.3 % (94-97); ABG PCO2 (T) 15.2 mmHg (32.0-45.0); ABG PO2 (T) 87.2 mmHg (75.0-100.0); ALLEN'S TEST POSITIVE; FCOHb 0.3 % (0.0-3.9); FMetHb 0.2 % (0.0-1.5); FO2Hb 94.8 % (94-97); PATIENT TEMPERATURE 36.7; TOTAL HEMOGLOBIN 8.2 G/dl (12.0-16.0)
[2021-03-06] MEDS: dextrose 5%-normal saline 1,000 ML IV SCH (05:07)
[2021-03-06] MEDS ORDERED: magnesium hydroxide 30ml (MOM) UD suspension PO PRN (05:25)
[2021-03-06] MEDS ORDERED: acetaminophen 325mg tablet PO PRN (05:25)
[2021-03-06] MEDS ORDERED: MESSAGE TO PHARMACY PO ONE (05:25)
[2021-03-06] MEDS ORDERED: potassium Cl 20 mEq SR tablet PO PRN (05:25)
[2021-03-06] MEDS ORDERED: magnesium 2GM in 50ml NS 50 ML IV PRN (05:25)
[2021-03-06] MEDS ORDERED: dextrose 50%-water 50ml dispensing syringe IV PRN ×2 (05:25)
[2021-03-06] MEDS ORDERED: dextrose ORAL solution 15 GM/59 ML bottle PO PRN ×2 (05:25)
[2021-03-06] MEDS ORDERED: mag hydrox/Alum hydrox/simeth 30ml oral suspension PO PRN (05:25)
[2021-03-06] MEDS ORDERED: magnesium 4gm in 100ml NS 100 ML IV PRN (05:25)
[2021-03-06] MEDS ORDERED: potassium Cl 40MEQ/1/2NS 520ml 520 ML IV PRN ×2 (05:25)
[2021-03-06] MEDS ORDERED: ondansetron/PF 4mg/2ml inj IV PRN (05:25)
[2021-03-06] MEDS ORDERED: HYDROcodone/acetaminophen 5mg/325mg tablet PO PRN (05:25)
[2021-03-06] MEDS ORDERED: glucagon, human recombinant 1mg kit SUBCUT PRN (05:25)
[2021-03-06] MEDS ORDERED: HYDROcodone/acetaminophen 10/325mg tab PO PRN (05:25)
[2021-03-06] MEDS ORDERED: magnesium Cl slow-release 64mg tablet PO PRN (05:25)
[2021-03-06] MEDS ORDERED: insulin Lispro (HumaLOG) vial - multi-dose SQ SCH (05:25)
[2021-03-06] MEDS: CefTRIAXone/D5W-Rocephin 1gm 50 ML IV SCH (05:55)
[2021-03-06] MEDS ORDERED: vancomycin/NS 1 GM ADD-VANTAGE 250 ML IV PRN (06:00)
[2021-03-06] MEDS ORDERED: CARV6.253 PO (06:20)
[2021-03-06] MEDS ORDERED: AMLO10TA13 PO (06:20)
[2021-03-06] MEDS ORDERED: SERT-433 PO (06:20)
[2021-03-06 06:39] LABS: URINE AMPHETAMINE SCREEN NEGATIVE (Neg); URINE BARBITUATE SCREEN NEGATIVE (Neg); URINE BENZODIAZEPINES SCREEN NEGATIVE (Neg); URINE CANNABINOID SCREEN NEGATIVE (Neg); URINE COCAINE SCREEN NEGATIVE (Neg); URINE METHADONE SCREEN NEGATIVE (Neg); URINE OPIATE SCREEN NEGATIVE (Neg); URINE PHENCYCLIDINE SCREEN NEGATIVE (Neg)
[2021-03-06 07:23] LABS: CLARITY,URINE CLEAR (Clear); COLOR,URINE YELLOW (Yellow); PH,URINE 7.5 (4.8-8.0); UA COLLECTION TYPE STRAIGHT CATH
[2021-03-06 07:24] LABS: GLUCOSE, URINE NEGATIVE (Neg); KETONES,URINE NEGATIVE (Neg); NITRITES, URINE NEGATIVE (Neg); OCCULT BLOOD,URINE NEGATIVE (Neg); UROBILINOGEN,URINE 0.2 E.U/dL (0.2-1.0)
[2021-03-06 07:25] LABS: PROTEIN,URINE 30 mg/dl (Neg)
[2021-03-06 07:26] LABS: LEUKOCYTE ESTERASE ,URINE NEGATIVE (Neg); SQUAMOUS EPITHELIAL CELL,UR MODERATE /LPF (FEW)
[2021-03-06 07:27] LABS: BACTERIA,URINE 1+ /HPF (Neg); RBC,URINE NONE SEEN /HPF (0-2)
[2021-03-06] MEDS ORDERED: carvedilol 6.25mg tablet PO SCH (07:30)
[2021-03-06] MEDS: K and/or MAG REPLACEMENT MC SCH ×2 (08:00→20:00)
[2021-03-06] MEDS: sertraline 50mg tablet PO SCH (08:50)
[2021-03-06] MEDS: amLODIPine 5mg tablet PO SCH (08:51)
--- NOTE | 2021-03-06 09:43 | NUR ---
called pharmacy, making morning meds and will send down
[2021-03-06] MEDS: sodium bicarbonate (8.4%) inj. 150 MEQ in dextrose 5%-water 1,000 ML IV SCH ×2 (10:18→19:19)
[2021-03-06] MEDS: docusate sod 100mg capsule PO SCH ×2 (10:19→20:00)
[2021-03-06] MEDS: carvedilol 6.25mg tablet PO SCH ×2 (10:21→17:30)
[2021-03-06] MEDS ORDERED: normal saline 1000ml 250 ML IV PRN (10:50)
[2021-03-06] MEDS ORDERED: heparin 1,000unit/ml 10ml vial 10 ML IV ONE (10:50)
[2021-03-06] MEDS ORDERED: EPOETIN ALFA-EPBX 20,000 UNIT/ML 1 ML MDV IV ONE (10:50)
[2021-03-06] MEDS ORDERED: heparin 1,000 units/ml 10ml inj HE ONE ×2 (10:55)
--- NOTE | 2021-03-06 16:52 | NUR ---
placed on hospital bed
--- NOTE | 2021-03-06 17:56 | NUR ---
page sent to dr georges about pt hypotension. pt stated no complaints, no pain. will hold coreg
--- NOTE | 2021-03-06 18:06 | NUR ---
spoke with jimenez burnette to hold coreg and continue to monitor bp. will continue to monitor
--- NOTE | 2021-03-06 19:52 | NUR ---
[employer] prior authorization nurse(Galina) notified of patient dialysis order.
[2021-03-06] MEDS: lactobacillus rhamnosus 10,000 MMU CELLS/CAPSULE PO SCH (20:27)
[2021-03-06] MEDS ORDERED: insulin glargine (Lantus) pen - multi-dose SQ SCH (21:00)
[2021-03-06] MEDS ORDERED: UNABLE TO OBTAIN (21:39)
[2021-03-07] MEDS: dextrose 5%-normal saline 1,000 ML IV SCH ×2 (00:45→17:06)
--- NOTE | 2021-03-07 02:00 | NUR ---
Patient transferred from ED to PCU, Alert and responsive. IVF in progress. Call light within reach. Safety precaution in place and maintained
[2021-03-07] MEDS: VANCOMYCIN LEVEL IV SCH (03:00)
[2021-03-07 04:15] VITALS: BP 108/54
[2021-03-07 06:00] VITALS: BP 118/55
--- NOTE | 2021-03-07 07:00 | NUR ---
Patient cough 30ml of clear liquid. HOB elevated for aspiration precaution. Continue to monitor
[2021-03-07] MEDS: carvedilol 6.25mg tablet PO SCH ×2 (07:30→17:30)
[2021-03-07 07:39] LABS: PARTIAL THROMBOPLASTIN TIME 33 SECONDS (22-32)
[2021-03-07 07:50] LABS: ALANINE AMINOTRANSFERASE 13 U/L (12-78); ALBUMIN 1.8 G/DL (3.4-5.0); ALBUMIN/GLOBULIN RATIO 0.6 (1.1-1.5); ALKALINE PHOSPHATASE 97 IU/L (46-116); ANION GAP 11 (8-16); ASPARTATE AMINO TRANSFERASE 15 U/L (10-37); BILIRUBIN,TOTAL 0.3 MG/DL (0.1-1.0); BLOOD UREA NITROGEN 47 MG/DL (7-18); BUN/CREATININE RATIO 12.2 (6.6-38.0); CALCIUM 6.3 MG/DL (8.5-10.1); CHLORIDE 107 MMOL/L (99-107); CREATININE 3.86 MG/DL (0.40-0.90); MAGNESIUM 1.4 MG/DL (1.5-2.4); POTASSIUM 3.1 MMOL/L (3.5-5.1); SODIUM 141 MMOL/L (135-145); TOTAL CARBON DIOXIDE 22.7 MMOL/L (24-32); VANCOMYCIN,RANDOM 17.5 UG/ML; eGFR 12 ML/MIN
[2021-03-07 07:54] LABS: GLUCOSE 48 MG/DL (70-104)
[2021-03-07] MEDS: K and/or MAG REPLACEMENT MC SCH ×2 (08:00→20:00)
[2021-03-07] MEDS: amLODIPine 5mg tablet PO SCH (08:00)
[2021-03-07] MEDS: CefTRIAXone/D5W-Rocephin 1gm 50 ML IV SCH (08:03)
[2021-03-07 08:21] LABS: PHOSPHORUS 3.7 MG/DL (2.3-4.5)
[2021-03-07] MEDS: docusate sod 100mg capsule PO SCH ×2 (08:26→20:14)
[2021-03-07] MEDS: sertraline 50mg tablet PO SCH (08:26)
[2021-03-07] MEDS: lactobacillus rhamnosus 10,000 MMU CELLS/CAPSULE PO SCH ×2 (08:26→20:09)
[2021-03-07 08:30] VITALS: BP 96/42
[2021-03-07 09:23] LABS: BASOPHILS % (AUTO) 0.2 % (0-1); EOSINOPHILS # (AUTO) 0.2 X10'3 (0-0.9); EOSINOPHILS % (AUTO) 1.4 % (0-6); LYMPHOCYTES # (AUTO) 0.9 X10'3 (1.1-4.8); LYMPHOCYTES % (AUTO) 8.2 % (21-51); MEAN CORPUSCULAR HEMOGLOBIN 32.1 PG (27.0-31.0); MEAN CORPUSCULAR HGB CONC 33.8 g/dL (33.0-36.5); MEAN PLATELET VOLUME 9.3 FL (7.4-10.4); MONOCYTES # (AUTO) 0.8 X10'3 (0-0.9); MONOCYTES % (AUTO) 7.4 % (2-12); NEUTROPHILS # (AUTO) 9.5 X10'3 (1.8-7.7); NEUTROPHILS % (AUTO) 82.8 % (42-75); PLATELET COUNT 192 X10'3 (140-440); RED BLOOD COUNT 2.04 X10'6 (4.20-5.60); RED CELL DISTRIBUTION WIDTH 17.3 % (11.5-14.5); WHITE BLOOD COUNT 11.5 X10'3 (4.5-11.0)
[2021-03-07 09:31] LABS: HEMOGLOBIN 6.5 g/dl (12.0-16.0)
[2021-03-07 09:32] LABS: HEMATOCRIT 19.3 % (35.0-45.0)
--- NOTE | 2021-03-07 09:33 | NUR ---
Page to Physician PAGER ID: [phone] MESSAGE: [phone] Siaz- Hemoglobin and hematocrit 6.5, 19.3. Gwendolyn [phone]
[2021-03-07] MEDS: potassium Cl 20 mEq SR tablet PO PRN ×2 (10:16→18:39)
[2021-03-07 10:57] LABS: HBSAG SCREEN Negative (Negative)
[2021-03-07 11:43] VITALS: BP 88/47
[2021-03-07 15:00] VITALS: BP 123/61
[2021-03-07 15:51] LABS: FERRITIN 99 NG/ML (8-252)
[2021-03-07 16:18] LABS: % IRON SATURATION 15 % (11-46); IRON 19 UG/DL (49-151); TOTAL IRON BINDING CAPACITY 131 UG/DL (259-388)
[2021-03-07 16:59] VITALS: BP 118/54
--- NOTE | 2021-03-07 18:44 | NUR ---
Problems reprioritized. Patient report given, questions answered & plan of care reviewed with Lexus NEWMAN.
[2021-03-08] VITALS (8 sets, daily range): BP systolic 104–148; BP diastolic 51–90
[2021-03-08] MEDS: K and/or MAG REPLACEMENT MC SCH ×2 (02:00→20:00)
[2021-03-08] MEDS: VANCOMYCIN LEVEL IV SCH (03:00)
[2021-03-08] MEDS: potassium Cl 20 mEq SR tablet PO PRN (06:00)
[2021-03-08 06:43] LABS: BASOPHILS % (AUTO) 0.3 % (0-1); EOSINOPHILS # (AUTO) 0.1 X10'3 (0-0.9); EOSINOPHILS % (AUTO) 0.9 % (0-6); HEMATOCRIT 27.8 % (35.0-45.0); HEMOGLOBIN 9.3 g/dl (12.0-16.0); LYMPHOCYTES # (AUTO) 1.5 X10'3 (1.1-4.8); LYMPHOCYTES % (AUTO) 11.5 % (21-51); MEAN CORPUSCULAR HEMOGLOBIN 30.7 PG (27.0-31.0); MEAN CORPUSCULAR HGB CONC 33.4 g/dL (33.0-36.5); MEAN PLATELET VOLUME 9.1 FL (7.4-10.4); MONOCYTES # (AUTO) 1.4 X10'3 (0-0.9); MONOCYTES % (AUTO) 10.2 % (2-12); NEUTROPHILS # (AUTO) 10.2 X10'3 (1.8-7.7); NEUTROPHILS % (AUTO) 77.1 % (42-75); PLATELET COUNT 203 X10'3 (140-440); RED BLOOD COUNT 3.02 X10'6 (4.20-5.60); RED CELL DISTRIBUTION WIDTH 17.7 % (11.5-14.5); WHITE BLOOD COUNT 13.2 X10'3 (4.5-11.0)
[2021-03-08 06:54] LABS: PARTIAL THROMBOPLASTIN TIME 30 SECONDS (22-32)
[2021-03-08] MEDS ORDERED: albumin (human) 25% 100ml IV 100 ML IV PRN (07:05)
[2021-03-08] MEDS ORDERED: EPOETIN ALFA-EPBX 20,000 UNIT/ML 1 ML MDV IV ONE (07:05)
[2021-03-08] MEDS ORDERED: heparin 1,000 units/ml 10ml inj IV ONE (07:05)
[2021-03-08] MEDS ORDERED: heparin 1,000unit/ml 10ml vial 10 ML IV ONE (07:05)
[2021-03-08] MEDS ORDERED: heparin 1,000 units/ml 10ml inj HE ONE ×2 (07:10)
[2021-03-08 07:20] LABS: ALANINE AMINOTRANSFERASE 13 U/L (12-78); ALBUMIN 1.9 G/DL (3.4-5.0); ALBUMIN/GLOBULIN RATIO 0.6 (1.1-1.5); ALKALINE PHOSPHATASE 102 IU/L (46-116); ANION GAP 11 (8-16); ASPARTATE AMINO TRANSFERASE 18 U/L (10-37); BILIRUBIN,TOTAL 0.3 MG/DL (0.1-1.0); BLOOD UREA NITROGEN 48 MG/DL (7-18); CHLORIDE 104 MMOL/L (99-107); CREATININE 4.37 MG/DL (0.40-0.90); GLUCOSE 88 MG/DL (70-104); MAGNESIUM 1.3 MG/DL (1.5-2.4); POTASSIUM 3.7 MMOL/L (3.5-5.1); SODIUM 134 MMOL/L (135-145); TOTAL CARBON DIOXIDE 19.5 MMOL/L (24-32); TOTAL PROTEIN 5.2 G/DL (6.4-8.2); VANCOMYCIN,RANDOM 16.1 UG/ML; eGFR 10 ML/MIN
--- NOTE | 2021-03-08 07:44 | NUR ---
PRBC transfusion given per order, no transfusion reaction given, tolerated well. Denies any pain/acute distress.Report given to incoming nurse
--- NOTE | 2021-03-08 07:51 | NUR ---
PAGER ID: [phone] MESSAGE: [phone] Siaz- Calcium 6. Scheduled for dialysis today. Gwendolyn [phone]
[2021-03-08] MEDS: docusate sod 100mg capsule PO SCH ×2 (08:00→20:00)
[2021-03-08] MEDS: lactobacillus rhamnosus 10,000 MMU CELLS/CAPSULE PO SCH ×2 (08:05→20:55)
[2021-03-08] MEDS: carvedilol 6.25mg tablet PO SCH ×2 (08:06→17:30)
[2021-03-08] MEDS: sertraline 50mg tablet PO SCH (08:06)
[2021-03-08] MEDS: amLODIPine 5mg tablet PO SCH (08:06)
[2021-03-08] MEDS: CefTRIAXone/D5W-Rocephin 1gm 50 ML IV SCH (08:07)
[2021-03-08 09:37] LABS: OCCULT BLOOD STOOL NEGATIVE (Neg)
[2021-03-08] MEDS: iron sucrose complex injection 200 MG in normal saline 100ml IV soln 100 ML IV SCH (09:53)
[2021-03-08] MEDS: acetaminophen 325mg tablet PO PRN (10:17)
--- NOTE | 2021-03-08 10:43 | NUR ---
George Consult: George Norwood w/ skin intact per EMR. Addendum: 03/08/21 at [address] Amended: Links added.
--- NOTE | 2021-03-08 18:14 | NUR ---
Problems reprioritized. Patient report given, questions answered & plan of care reviewed with Enio NEWMAN.
--- NOTE | 2021-03-08 18:22 | NUR ---
Patient in room PCU 3011. I have received report from Gwendolyn NEWMAN and had the opportunity to ask questions and assume patient care. Will continue to monitor
[2021-03-09] MEDS: VANCOMYCIN LEVEL IV SCH (03:00)
[2021-03-09 06:27] LABS: BASOPHILS % (AUTO) 0.4 % (0-1); EOSINOPHILS # (AUTO) 0.2 X10'3 (0-0.9); EOSINOPHILS % (AUTO) 1.2 % (0-6); HEMATOCRIT 28.4 % (35.0-45.0); HEMOGLOBIN 9.5 g/dl (12.0-16.0); LYMPHOCYTES # (AUTO) 1.6 X10'3 (1.1-4.8); LYMPHOCYTES % (AUTO) 12.1 % (21-51); MEAN CORPUSCULAR HEMOGLOBIN 31.1 PG (27.0-31.0); MEAN CORPUSCULAR HGB CONC 33.4 g/dL (33.0-36.5); MEAN CORPUSCULAR VOLUME 92.9 FL (78-98); MEAN PLATELET VOLUME 8.6 FL (7.4-10.4); MONOCYTES # (AUTO) 1.5 X10'3 (0-0.9); MONOCYTES % (AUTO) 11.5 % (2-12); NEUTROPHILS # (AUTO) 9.8 X10'3 (1.8-7.7); NEUTROPHILS % (AUTO) 74.8 % (42-75); PLATELET COUNT 213 X10'3 (140-440); RED BLOOD COUNT 3.06 X10'6 (4.20-5.60); RED CELL DISTRIBUTION WIDTH 17.7 % (11.5-14.5); WHITE BLOOD COUNT 13.1 X10'3 (4.5-11.0)
--- NOTE | 2021-03-09 06:39 | NUR ---
Patient in room PCU 3011. I have received report from Lexus NEWMAN and had the opportunity to ask questions and assume patient care.
[2021-03-09 06:51] LABS: PARTIAL THROMBOPLASTIN TIME 30 SECONDS (22-32)
[2021-03-09 06:58] LABS: ALANINE AMINOTRANSFERASE 14 U/L (12-78); ALBUMIN 1.8 G/DL (3.4-5.0); ALBUMIN/GLOBULIN RATIO 0.5 (1.1-1.5); ALKALINE PHOSPHATASE 107 IU/L (46-116); ANION GAP 10 (8-16); ASPARTATE AMINO TRANSFERASE 18 U/L (10-37); BILIRUBIN,TOTAL 0.2 MG/DL (0.1-1.0); BLOOD UREA NITROGEN 19 MG/DL (7-18); BUN/CREATININE RATIO 7.2 (6.6-38.0); CALCIUM 6.6 MG/DL (8.5-10.1); CHLORIDE 103 MMOL/L (99-107); CREATININE 2.65 MG/DL (0.40-0.90); GLUCOSE 100 MG/DL (70-104); MAGNESIUM 1.4 MG/DL (1.5-2.4); POTASSIUM 4.2 MMOL/L (3.5-5.1); SODIUM 138 MMOL/L (135-145); TOTAL CARBON DIOXIDE 25.1 MMOL/L (24-32); TOTAL PROTEIN 5.1 G/DL (6.4-8.2); VANCOMYCIN,RANDOM 11.1 UG/ML; eGFR 18 ML/MIN
[2021-03-09 07:00] VITALS: BP 129/64
--- NOTE | 2021-03-09 07:04 | NUR ---
Patient alert and responsive. Fingerstick done, no coverage given per order. Denies any pain/acute distress. Report given to Meseret NEWMAN.
[2021-03-09] MEDS: K and/or MAG REPLACEMENT MC SCH ×2 (08:00→20:00)
[2021-03-09] MEDS: docusate sod 100mg capsule PO SCH ×2 (08:22→22:13)
[2021-03-09] MEDS: carvedilol 6.25mg tablet PO SCH ×2 (08:23→17:30)
[2021-03-09] MEDS: amLODIPine 5mg tablet PO SCH (08:24)
[2021-03-09] MEDS: lactobacillus rhamnosus 10,000 MMU CELLS/CAPSULE PO SCH ×2 (08:24→22:14)
[2021-03-09] MEDS: CefTRIAXone/D5W-Rocephin 1gm 50 ML IV SCH (08:39)
[2021-03-09] MEDS: iron sucrose complex injection 200 MG in normal saline 100ml IV soln 100 ML IV SCH (09:51)
[2021-03-09] MEDS: sertraline 50mg tablet PO SCH (09:59)
[2021-03-09] MEDS ORDERED: vancomycin/NS 1 GM ADD-VANTAGE 250 ML IV ONE (10:10)
[2021-03-09] MEDS: acetaminophen 325mg tablet PO PRN (10:59)
[2021-03-09 11:00] VITALS: BP 141/57
[2021-03-09] MEDS ORDERED: potassium Cl 20 mEq SR tablet PO PRN ×2 (11:00)
[2021-03-09] MEDS ORDERED: magnesium 4gm in 100ml NS 100 ML IV PRN (11:00)
[2021-03-09] MEDS ORDERED: potassium Cl 40MEQ/1/2NS 520ml 520 ML IV PRN (11:00)
[2021-03-09] MEDS: magnesium Cl slow-release 64mg tablet PO PRN ×2 (12:12→22:14)
[2021-03-09 15:00] VITALS: BP 146/62
[2021-03-09 18:00] VITALS: BP 134/72
--- NOTE | 2021-03-09 18:24 | NUR ---
Problems reprioritized. Patient report given, questions answered & plan of care reviewed with Erinn NEWMAN.
[2021-03-09 22:00] VITALS: BP 134/70
[2021-03-10 02:00] VITALS: BP 127/64
[2021-03-10] MEDS: VANCOMYCIN LEVEL IV SCH (03:00)
[2021-03-10 05:06] LABS: ALANINE AMINOTRANSFERASE 14 U/L (12-78); ALBUMIN 1.8 G/DL (3.4-5.0); ALBUMIN/GLOBULIN RATIO 0.5 (1.1-1.5); ALKALINE PHOSPHATASE 108 IU/L (46-116); ANION GAP 7 (8-16); ASPARTATE AMINO TRANSFERASE 16 U/L (10-37); BILIRUBIN,TOTAL 0.2 MG/DL (0.1-1.0); BLOOD UREA NITROGEN 24 MG/DL (7-18); BUN/CREATININE RATIO 7.5 (6.6-38.0); CALCIUM 6.8 MG/DL (8.5-10.1); CHLORIDE 104 MMOL/L (99-107); GLUCOSE 70 MG/DL (70-104); MAGNESIUM 1.6 MG/DL (1.5-2.4); POTASSIUM 4.7 MMOL/L (3.5-5.1); SODIUM 135 MMOL/L (135-145); TOTAL CARBON DIOXIDE 23.8 MMOL/L (24-32); TOTAL PROTEIN 5.3 G/DL (6.4-8.2); VANCOMYCIN,RANDOM 23.7 UG/ML; eGFR 15 ML/MIN
--- NOTE | 2021-03-10 06:28 | NUR ---
Problems reprioritized. Patient report given, questions answered & plan of care reviewed with PATY Holloway.
--- NOTE | 2021-03-10 06:38 | NUR ---
Patient in room PCU 3011. I have received report from Erinn NEWMAN and had the opportunity to ask questions and assume patient care. Patient resting in bed in no acute distress.
[2021-03-10 07:00] VITALS: BP 151/67
[2021-03-10 07:41] LABS: BASOPHILS % (AUTO) 0.3 % (0-1); EOSINOPHILS # (AUTO) 0.3 X10'3 (0-0.9); EOSINOPHILS % (AUTO) 2.5 % (0-6); HEMATOCRIT 30.3 % (35.0-45.0); HEMOGLOBIN 10.1 g/dl (12.0-16.0); LYMPHOCYTES # (AUTO) 1.5 X10'3 (1.1-4.8); LYMPHOCYTES % (AUTO) 12.4 % (21-51); MEAN CORPUSCULAR HEMOGLOBIN 31.1 PG (27.0-31.0); MEAN CORPUSCULAR HGB CONC 33.5 g/dL (33.0-36.5); MEAN CORPUSCULAR VOLUME 93.1 FL (78-98); MEAN PLATELET VOLUME 8.7 FL (7.4-10.4); MONOCYTES # (AUTO) 1.1 X10'3 (0-0.9); MONOCYTES % (AUTO) 9.1 % (2-12); NEUTROPHILS # (AUTO) 9.1 X10'3 (1.8-7.7); NEUTROPHILS % (AUTO) 75.7 % (42-75); PLATELET COUNT 219 X10'3 (140-440); RED BLOOD COUNT 3.25 X10'6 (4.20-5.60); RED CELL DISTRIBUTION WIDTH 17.7 % (11.5-14.5)
[2021-03-10] MEDS: CefTRIAXone/D5W-Rocephin 1gm 50 ML IV SCH (07:43)
[2021-03-10] MEDS: sertraline 50mg tablet PO SCH (07:44)
[2021-03-10] MEDS: lactobacillus rhamnosus 10,000 MMU CELLS/CAPSULE PO SCH ×2 (07:44→20:19)
[2021-03-10] MEDS: amLODIPine 5mg tablet PO SCH (07:44)
[2021-03-10] MEDS: carvedilol 6.25mg tablet PO SCH ×2 (07:45→17:54)
[2021-03-10] MEDS: iron sucrose complex injection 200 MG in normal saline 100ml IV soln 100 ML IV SCH (07:45)
[2021-03-10] MEDS: docusate sod 100mg capsule PO SCH ×2 (08:00→20:00)
[2021-03-10] MEDS: K and/or MAG REPLACEMENT MC SCH (08:00)
[2021-03-10] MEDS: loperamide 2mg capsule PO PRN ×2 (10:14→22:11)
[2021-03-10 11:00] VITALS: BP 127/62
[2021-03-10 15:00] VITALS: BP 127/62
--- NOTE | 2021-03-10 17:44 | NUR ---
Orientee documentation: I have reviewed and agree with all interventions, assessments performed and documented by Meseret Rodriguez Medication Administration: For this medication-pass time frame, all medication were reviewed, dispensed, administered and documented per hospital policy by Meseret NEWMAN. .
[2021-03-10 18:00] VITALS: BP 152/79
--- NOTE | 2021-03-10 18:19 | NUR ---
Problems reprioritized. Patient report given, questions answered & plan of care reviewed with Erinn NEWMAN.
[2021-03-10 22:00] VITALS: BP 134/60
[2021-03-11 02:00] VITALS: BP 131/68
[2021-03-11] MEDS: VANCOMYCIN LEVEL IV SCH (03:26)
[2021-03-11 03:39] LABS: BASOPHILS % (AUTO) 0.2 % (0-1); EOSINOPHILS # (AUTO) 0.4 X10'3 (0-0.9); HEMOGLOBIN 9.1 g/dl (12.0-16.0); LYMPHOCYTES # (AUTO) 1.7 X10'3 (1.1-4.8); MEAN CORPUSCULAR HEMOGLOBIN 31.3 PG (27.0-31.0); MEAN CORPUSCULAR HGB CONC 33.7 g/dL (33.0-36.5); MEAN CORPUSCULAR VOLUME 92.8 FL (78-98); MEAN PLATELET VOLUME 7.9 FL (7.4-10.4); MONOCYTES # (AUTO) 1.1 X10'3 (0-0.9); MONOCYTES % (AUTO) 8.9 % (2-12); NEUTROPHILS # (AUTO) 9.6 X10'3 (1.8-7.7); NEUTROPHILS % (AUTO) 74.9 % (42-75); PLATELET COUNT 227 X10'3 (140-440); RED BLOOD COUNT 2.91 X10'6 (4.20-5.60); RED CELL DISTRIBUTION WIDTH 17.3 % (11.5-14.5); WHITE BLOOD COUNT 12.7 X10'3 (4.5-11.0)
[2021-03-11 03:55] LABS: ALANINE AMINOTRANSFERASE 12 U/L (12-78); ALBUMIN 1.8 G/DL (3.4-5.0); ALBUMIN/GLOBULIN RATIO 0.5 (1.1-1.5); ALKALINE PHOSPHATASE 105 IU/L (46-116); ANION GAP 11 (8-16); ASPARTATE AMINO TRANSFERASE 13 U/L (10-37); BILIRUBIN,TOTAL 0.2 MG/DL (0.1-1.0); BLOOD UREA NITROGEN 34 MG/DL (7-18); CALCIUM 6.9 MG/DL (8.5-10.1); CHLORIDE 102 MMOL/L (99-107); CREATININE 3.78 MG/DL (0.40-0.90); GLUCOSE 73 MG/DL (70-104); MAGNESIUM 1.5 MG/DL (1.5-2.4); POTASSIUM 5.5 MMOL/L (3.5-5.1); SODIUM 134 MMOL/L (135-145); TOTAL CARBON DIOXIDE 21.3 MMOL/L (24-32); TOTAL PROTEIN 5.2 G/DL (6.4-8.2); VANCOMYCIN,RANDOM 20.1 UG/ML; eGFR 12 ML/MIN
--- NOTE | 2021-03-11 06:05 | NUR ---
Problems reprioritized. Patient report given, questions answered & plan of care reviewed with PATY Holloway.
--- NOTE | 2021-03-11 06:16 | NUR ---
Patient in room PCU 3011. I have received report from Erinn NEWMAN and had the opportunity to ask questions and assume patient care. Patient resting in bed watching TV in no acute distress.
[2021-03-11 07:00] VITALS: BP 121/63
[2021-03-11] MEDS: lactobacillus rhamnosus 10,000 MMU CELLS/CAPSULE PO SCH ×2 (07:48→19:17)
[2021-03-11] MEDS: sertraline 50mg tablet PO SCH (07:49)
[2021-03-11] MEDS: carvedilol 6.25mg tablet PO SCH ×2 (07:49→17:30)
[2021-03-11] MEDS: amLODIPine 5mg tablet PO SCH (07:49)
[2021-03-11] MEDS: CefTRIAXone/D5W-Rocephin 1gm 50 ML IV SCH (07:49)
[2021-03-11] MEDS: docusate sod 100mg capsule PO SCH ×2 (08:00→19:18)
[2021-03-11] MEDS: K and/or MAG REPLACEMENT MC SCH ×2 (08:00→20:00)
[2021-03-11] MEDS ORDERED: EPOETIN ALFA-EPBX 20,000 UNIT/ML 1 ML MDV IV ONE (08:30)
[2021-03-11] MEDS ORDERED: heparin 1,000 units/ml 10ml inj HE ONE ×2 (08:30)
[2021-03-11] MEDS ORDERED: heparin 1,000unit/ml 10ml vial 10 ML IV ONE (08:30)
[2021-03-11] MEDS ORDERED: normal saline 1000ml 250 ML IV PRN (08:30)
[2021-03-11] MEDS: iron sucrose complex injection 200 MG in normal saline 100ml IV soln 100 ML IV SCH (08:38)
[2021-03-11 11:00] VITALS: BP 122/57
--- NOTE | 2021-03-11 12:32 | NUR ---
Initial: Pt admitted w/ ALOC, SOB, and sepsis per EMR. Per [employer] note, pt has not been going to outpatient dialysis since January. Pt appears to be on schedule for dialysis while admitted here. Pt w/ relatively low PO intake 42% x 10 meals on Heart healthy diet not meeting needs. Pt may benefit from ONS to help meet increased nutrient needs while on HD and w/ sepsis. [facility] 03/10. Will continue to monitor. Recs: 1. Continue Heart Healthy diet as tolerated 2. Nepro TID 3. Bowel care per rx 4. Scaled wt w/ dialysis Addendum: 03/11/21 at [address] Amended: Links added.
[2021-03-11 15:00] VITALS: BP 139/68
--- NOTE | 2021-03-11 16:17 | NUR ---
Page Sent promotional table spacer PAGER ID: [phone] MESSAGE: [id number] Siaz. Unable to obtain IV access. PICC not here. Patient not going to LTAC until tomorrow. Salma [phone]
--- NOTE | 2021-03-11 17:49 | NUR ---
Orientee documentation: I have reviewed and agree with all interventions, assessments performed and documented by Meseret NEWMAN . [place] Medication Administration: For this medication-pass time frame, all medication were reviewed, dispensed, administered and documented per hospital policy by Meseret NEWMAN.
[2021-03-11 18:00] VITALS: BP 131/65
--- NOTE | 2021-03-11 18:22 | NUR ---
Problems reprioritized. Patient report given, questions answered & plan of care reviewed with Shantel NEWMAN.
[2021-03-11 22:00] VITALS: BP 127/62
[2021-03-12 02:00] VITALS: BP 134/64
[2021-03-12] MEDS: VANCOMYCIN LEVEL IV SCH (03:00)
[2021-03-12 06:00] VITALS: BP 126/71
[2021-03-12 06:53] LABS: MAGNESIUM 1.9 MG/DL (1.5-2.4); VANCOMYCIN,RANDOM 15.3 UG/ML
[2021-03-12] MEDS: K and/or MAG REPLACEMENT MC SCH (08:00)
[2021-03-12] MEDS: iron sucrose complex injection 200 MG in normal saline 100ml IV soln 100 ML IV SCH (08:00)
[2021-03-12] MEDS: CefTRIAXone/D5W-Rocephin 1gm 50 ML IV SCH (08:00)
[2021-03-12] MEDS: carvedilol 6.25mg tablet PO SCH ×2 (08:02→17:40)
[2021-03-12] MEDS: amLODIPine 5mg tablet PO SCH (08:03)
[2021-03-12] MEDS: lactobacillus rhamnosus 10,000 MMU CELLS/CAPSULE PO SCH (08:03)
[2021-03-12] MEDS: sertraline 50mg tablet PO SCH (08:03)
[2021-03-12] MEDS: docusate sod 100mg capsule PO SCH (08:03)
--- NOTE | 2021-03-12 09:13 | NUR ---
PATIENT HAS NO PIV. UNABLE TO INITIATE PIV OR ADMINISTER IV ANTIBIOTIC THAT ARE ORDERED. PICC NURSE PAGED: PT IN [id number] NEEDS PIV PLACEMENT FOR ANTIBIOTICS. I'M UNABLE TO LOCATE. THANKS [id number]
[2021-03-12 10:39] LABS: BASOPHILS % (AUTO) 0.3 % (0-1); EOSINOPHILS # (AUTO) 0.3 X10'3 (0-0.9); EOSINOPHILS % (AUTO) 3.2 % (0-6); HEMATOCRIT 28.3 % (35.0-45.0); HEMOGLOBIN 9.1 g/dl (12.0-16.0); LYMPHOCYTES # (AUTO) 1.3 X10'3 (1.1-4.8); LYMPHOCYTES % (AUTO) 11.8 % (21-51); MEAN CORPUSCULAR HEMOGLOBIN 31.1 PG (27.0-31.0); MEAN CORPUSCULAR HGB CONC 32.3 g/dL (33.0-36.5); MEAN CORPUSCULAR VOLUME 96.4 FL (78-98); MEAN PLATELET VOLUME 8.3 FL (7.4-10.4); MONOCYTES # (AUTO) 1.1 X10'3 (0-0.9); MONOCYTES % (AUTO) 10.4 % (2-12); NEUTROPHILS # (AUTO) 8.2 X10'3 (1.8-7.7); NEUTROPHILS % (AUTO) 74.3 % (42-75); PLATELET COUNT 208 X10'3 (140-440); RED BLOOD COUNT 2.94 X10'6 (4.20-5.60); RED CELL DISTRIBUTION WIDTH 17.9 % (11.5-14.5)
[2021-03-12 11:00] VITALS: BP 140/61
--- NOTE | 2021-03-12 11:36 | NUR ---
PICC NURSE PAGED: [id number]. PIV PLACEMENT NEEDED FOR IV ANTIBIOTICS. THANKS [id number]
[2021-03-12] MEDS: acetaminophen 325mg tablet PO PRN (12:44)
--- NOTE | 2021-03-12 13:27 | NUR ---
Malnutrition consult: Pt reports 2-13 lb wt loss with decreased appetite per malnutrition risk screen with RN. Patient with slightly fluctuating wt hx in EMR, though around 95 kg at two most recent admits. Current documented wt is 85 kg though isn't scaled. Pt likely to have fluctuations in weight r/t fluid status with ESRD on dialysis. Pt currently eating well with mostly 100% PO intake since 03/10. Pt with no documented significant decrease in muscle strength or edema. Pt appears well developed well nourished per H&P. Pt currently lacks a minimum of two criteria for malnutrition. Will continue to follow. Addendum: 03/12/21 at [address] Amended: Links added.
--- NOTE | 2021-03-12 13:58 | NUR ---
UNABLE TO GIVE IV MEDICATIONS DUE TO NO IV ACCESS. PICC NURSE PAGED THIS A.M. FIRST AT 0913 AND AGAIN AT 1136 WITH NO RESPONSE. I WAS LATER TOLD THAT PICC NURSE WAS IN HOSPITAL ONLY UNTIL 12NOON.
[2021-03-12 15:00] VITALS: BP 123/59
--- NOTE | 2021-03-12 15:29 | NUR ---
REPORT GIVEN TO CARTER NEWMAN AT [facility]. AWAITING TRANSPORTATION.
--- NOTE | 2021-03-12 17:55 | NUR ---
PATIENT TRANSFERRED TO [facility]. ALL BELONGINGS GATHERED AND SENT WITH PATIENT.
== END 2021-03-12 17:57 | DRG 720 ==
LOC: ER 01:47 → ED HOLD 05:34 → PCU 3S 22:08
PROVIDERS: ADMIT Family Medicine; ATTEND Family Medicine
PROC: 30233N1 Transfusion of Nonautologous Red Blood Cells into Peripheral Vein, Percutaneous Approach (ICD-10-PCS; principal; 2021-03-07)
PROC: 5A1D70Z Performance of Urinary Filtration, Intermittent, Less than 6 Hours Per Day (ICD-10-PCS; 2021-03-07)
PROC: 5A1D70Z Performance of Urinary Filtration, Intermittent, Less than 6 Hours Per Day (ICD-10-PCS; 2021-03-08)
PROC: 5A1D70Z Performance of Urinary Filtration, Intermittent, Less than 6 Hours Per Day (ICD-10-PCS; 2021-03-10)
PROC: 5A1D70Z Performance of Urinary Filtration, Intermittent, Less than 6 Hours Per Day (ICD-10-PCS; 2021-03-11)
DX: A41.9 Sepsis, unspecified organism (principal); G93.40 Encephalopathy, unspecified; E87.2 Acidosis; I13.2 Hypertensive heart and chronic kidney disease with heart failure and with stage 5 chronic kidney disease, or end stage renal disease; E11.649 Type 2 diabetes mellitus with hypoglycemia without coma; N17.9 Acute kidney failure, unspecified; E11.22 Type 2 diabetes mellitus with diabetic chronic kidney disease; D64.9 Anemia, unspecified; E11.42 Type 2 diabetes mellitus with diabetic polyneuropathy; E78.00 Pure hypercholesterolemia, unspecified; E78.5 Hyperlipidemia, unspecified; E83.42 Hypomagnesemia; I48.91 Unspecified atrial fibrillation; I50.9 Heart failure, unspecified; J44.9 Chronic obstructive pulmonary disease, unspecified; F41.9 Anxiety disorder, unspecified; K21.9 Gastro-esophageal reflux disease without esophagitis; Z20.822 Contact with and (suspected) exposure to COVID-19; R19.7 Diarrhea, unspecified; N18.6 End stage renal disease; I69.320 Aphasia following cerebral infarction; Z79.899 Other long term (current) drug therapy; Z80.3 Family history of malignant neoplasm of breast; Z82.49 Family history of ischemic heart disease and other diseases of the circulatory system; Z82.5 Family history of asthma and other chronic lower respiratory diseases; Z83.3 Family history of diabetes mellitus; Z90.49 Acquired absence of other specified parts of digestive tract; Z90.710 Acquired absence of both cervix and uterus; Z99.2 Dependence on renal dialysis; Z88.0 Allergy status to penicillin; Z88.5 Allergy status to narcotic agent
CPT/HCPCS: 36415; 36430; 36600; 70450; 71045; 80053; 80202; 80305; 80320; 81001; 82272; 82728; 82803; 82948; 83036; 83540; 83550; 83605; 83735; 84100; 84145; 84443; 84484; 85007; 85018; 85025; 85610; 85730; 86885; 86900; 86901; 86920; 87040; 87088; 87340; 87635; 90935; 92508; 92616; 93005; 96361; 96365; 97110; 97163; 97530; 97535; 99285; G0257; G0378; J0456; J0696; J1644; J1756; J1815; J2405; J3370; J7042; P9016; Q4081

== ENCOUNTER 2021-06-04 19:49 | Emergency (ER) | payer MEDICAID ==
[~2021-06-04] VITALS: Ht 157.5 cm; Wt 86.4 kg
[~2021-06-04 19:49] MED LIST changes: +AMLO10TA13 PO; -AMLO5TAB4 PO; +CARV6.253 PO; -HYDR-4069 PO; +SERT-433 PO; +UNABLE TO OBTAIN
[2021-06-04] MEDS ORDERED: acetaminophen w/codeine (30MG) #3 tablet PO ONE (20:15)
[2021-06-04] MEDS ORDERED: ACET-1025 PO (21:39)
[2021-06-04 22:08] VITALS: BP 172/79
== END 2021-06-04 22:10 | disposition home or self-care (01) ==
LOC: ER 19:50
DX: R07.81 Pleurodynia (principal); I10 Essential (primary) hypertension; R53.1 Weakness; M25.551 Pain in right hip; I13.0 Hypertensive heart and chronic kidney disease with heart failure and stage 1 through stage 4 chronic kidney disease, or unspecified chronic kidney disease; E11.22 Type 2 diabetes mellitus with diabetic chronic kidney disease; N18.9 Chronic kidney disease, unspecified; I48.91 Unspecified atrial fibrillation; E78.00 Pure hypercholesterolemia, unspecified; J44.9 Chronic obstructive pulmonary disease, unspecified; K21.9 Gastro-esophageal reflux disease without esophagitis; F41.9 Anxiety disorder, unspecified; Z86.73 Personal history of transient ischemic attack (TIA), and cerebral infarction without residual deficits; Z90.89 Acquired absence of other organs; Z90.49 Acquired absence of other specified parts of digestive tract; Z90.710 Acquired absence of both cervix and uterus; Z95.1 Presence of aortocoronary bypass graft; Z88.0 Allergy status to penicillin; Z88.6 Allergy status to analgesic agent; Z88.5 Allergy status to narcotic agent; Z91.018 Allergy to other foods; Z79.4 Long term (current) use of insulin; Z79.899 Other long term (current) drug therapy
CPT/HCPCS: 71046; 73502; 99284

== ENCOUNTER 2021-08-05 14:19 | Emergency (ER) | payer MEDICAID ==
[~2021-08-05] VITALS: Ht 157.5 cm; Wt 77.3 kg
[2021-08-05 17:46] LABS: BASOPHILS % (AUTO) 0.3 % (0-1); EOSINOPHILS % (AUTO) 0.1 % (0-6); HEMATOCRIT 28.9 % (35.0-45.0); HEMOGLOBIN 9.7 g/dl (12.0-16.0); LYMPHOCYTES # (AUTO) 0.8 X10'3 (1.1-4.8); LYMPHOCYTES % (AUTO) 19.9 % (21-51); MEAN CORPUSCULAR HGB CONC 33.6 g/dL (33.0-36.5); MEAN CORPUSCULAR VOLUME 98.4 FL (78-98); MEAN PLATELET VOLUME 8.4 FL (7.4-10.4); MONOCYTES # (AUTO) 0.6 X10'3 (0-0.9); MONOCYTES % (AUTO) 13.8 % (2-12); NEUTROPHILS # (AUTO) 2.8 X10'3 (1.8-7.7); NEUTROPHILS % (AUTO) 65.9 % (42-75); PLATELET COUNT 141 X10'3 (140-440); RED BLOOD COUNT 2.93 X10'6 (4.20-5.60); RED CELL DISTRIBUTION WIDTH 17.7 % (11.5-14.5); WHITE BLOOD COUNT 4.3 X10'3 (4.5-11.0)
[2021-08-05 18:07] LABS: ALANINE AMINOTRANSFERASE 27 U/L (12-78); ALBUMIN/GLOBULIN RATIO 0.9 (1.1-1.5); ANION GAP 23 (8-16); ASPARTATE AMINO TRANSFERASE 34 U/L (10-37); BILIRUBIN,TOTAL 0.2 MG/DL (0.1-1.0); BLOOD UREA NITROGEN 84 MG/DL (7-18); BUN/CREATININE RATIO 8.8 (6.6-38.0); CALCIUM 6.5 MG/DL (8.5-10.1); CHLORIDE 104 MMOL/L (99-107); CREATININE 9.54 MG/DL (0.40-0.90); GLUCOSE 75 MG/DL (70-104); POTASSIUM 5.2 MMOL/L (3.5-5.1); SODIUM 139 MMOL/L (135-145); TOTAL PROTEIN 6.2 G/DL (6.4-8.2); eGFR 4 ML/MIN
[2021-08-05 18:08] LABS: PHOSPHORUS 10.5 MG/DL (2.3-4.5)
[2021-08-05 18:10] LABS: TOTAL CARBON DIOXIDE 12.4 MMOL/L (24-32)
--- NOTE | 2021-08-05 19:15 | NUR ---
PT HAS BEEN DISCHARGED. PT VERBALIZED UNDERSTANDING OF FOLLOW UP INSTRUCTIONS. TRANSPORTATION ISSUE IS BEING ARRANGED.
[2021-08-06 01:51] VITALS: BP 163/83
--- NOTE | 2021-08-06 02:30 | NUR ---
[employer] WILL BE COMING TO TAKE PT. HOME AT 0515. THERE IS A SPECIAL FORM THAT HAS BEEN SINED FOR THEM THAT WE WILL COVER THE $135 CLEANING FEE TO THEM SINCE THIS PT HAS COVID... FAMILY UNABLE TO PICK HER UP OR COVER THIS FEE. MARCK THE [employer] APPROVED THIS TRANSACTION.
== END 2021-08-05 19:15 | disposition home or self-care (01) ==
LOC: ER 14:19
DX: U07.1 COVID-19 (principal); E87.2 Acidosis; R05.9 Cough, unspecified; I13.2 Hypertensive heart and chronic kidney disease with heart failure and with stage 5 chronic kidney disease, or end stage renal disease; N18.6 End stage renal disease; I48.91 Unspecified atrial fibrillation; E78.00 Pure hypercholesterolemia, unspecified; J44.9 Chronic obstructive pulmonary disease, unspecified; K21.9 Gastro-esophageal reflux disease without esophagitis; F41.9 Anxiety disorder, unspecified; Z86.73 Personal history of transient ischemic attack (TIA), and cerebral infarction without residual deficits; Z99.2 Dependence on renal dialysis; Z90.89 Acquired absence of other organs; Z90.49 Acquired absence of other specified parts of digestive tract; Z90.710 Acquired absence of both cervix and uterus; Z95.1 Presence of aortocoronary bypass graft; Z88.0 Allergy status to penicillin; Z88.5 Allergy status to narcotic agent; Z88.6 Allergy status to analgesic agent; Z88.8 Allergy status to other drugs, medicaments and biological substances; Z79.4 Long term (current) use of insulin; Z79.899 Other long term (current) drug therapy
CPT/HCPCS: 36415; 80053; 84100; 85025; 99284